=== PATIENT | female | born 1995 | race Caucasian/White ===

== ENCOUNTER → 2020-09-27 13:52 | Outpatient (BNVA) | payer BC, MEDICAID, SELFPAY | PROVIDERS: Visit Provider Advanced Practice Midwife | DX: Z76.89 Persons encountering health services in other specified circumstances (principal) ==

== ENCOUNTER 2020-10-03 20:09 | Emergency (ER) | payer OTHER, SELFPAY ==
[2020-10-03 20:15] VITALS: BP 128/81; PULSE 75; RESP 14; TEMP 36.8; O2SAT 99
[2020-10-03 20:55] VITALS: BP 128/88; PULSE 79; RESP 16; TEMP 36.5; O2SAT 99; BMI 26.6
--- NOTE | 2020-10-03 21:12 | ED_ITS ---
HPI - Nausea/Vomiting/Diarrhea General Chief complaint: Nausea/Vomiting/Diarrhea Stated complaint: SOB Time Seen by Provider: 10/03/20 21:12 Source: patient Mode of arrival: ambulatory Limitations: no limitations History of Present Illness HPI Narrative: This is a 25-year-old female who presents after having a NuvaRing placed at approximately noon today in attempt to control heavy menstrual bleeding. She states that at approximately 4:00 p.m. she began experiencing nausea and a few episodes of nonbilious /nonbloody vomiting in conjunction with a few episodes of nonbloody diarrhea. She denies that this could possibly be contaminated food as she shared a meal and review others who are not having the same symptoms. In addition, patient complaints of discomfort behind her left knee. She denies any personal or family history clotting, denies smoking tobacco, but is on control for control of heavy menstrual bleeding. She denies any associated fevers, chills, but states that she did experience some dizziness after her nausea and vomiting episodes. Related Data Previous Rx's Medication Instructions Recorded etonogestrel 0.12 mg-ethinyl 1 vag ring VAGINAL Q4W 21 Days #1 09/27/20 estradiol 0.015 mg/24 hr vaginal ea ring Allergies Allergy/AdvReac Type Severity Reaction Status Date / Time No Known Allergies Allergy Verified 10/03/20 20:53 Review of Systems Review of Systems: Pertinent positives and negatives as stated in HPI 10 point review of systems is otherwise negative. [facility] Past Medical History Source: nursing notes reviewed Medical History History of asthma Surgical History Hx of shoulder surgery Family History Family History Maternal Grandmother History of breast cancer Ovarian cancer Father Diabetes mellitus Hypertension Mother Diabetes mellitus Social History Social History Alcohol intake: current Alcohol intake frequency: holidays/special occasions only Smoking Status: Never smoker Use of substances other than those prescribed or required for medical reasons: Yes Substance Use Type: Marijuana Advance Directives: No Advance Directives Information Provided: No Sexual orientation: Straight/Heterosexual Gender identity: female Physical Exam Vital Signs: Vital Signs: Last Vital Signs Temp 97.7 F 10/03/20 20:55 Pulse 79 10/03/20 20:55 Resp 16 10/03/20 20:55 BP 128/88 10/03/20 20:55 Pulse Ox 99 10/03/20 20:55 Body Mass Index 26.6 VITAL SIGNS: Reviewed. GENERAL: Well developed, well nourished, in no acute distress. HEAD: Normocephalic/atraumatic, EYES: PERRLA, EOMI intact without pain, no nystagmus/pallor/icterus noted EARS: Ext canals without abnormality, TMs non-bulging and non-erythematous NOSE: Nares patent bilateral OROPHARYNX: no oral lesions noted, posterior pharynx clear and non-erythematous without noted tonsillar enlargement/erythema/exudates NECK: Supple, no adenopathy LUNGS: Normal breath sounds. No adventitious sounds or accessory muscle use. SpO2<99> CARDIOVASCULAR: Regular rate and rhythm without noted murmurs, no JVD or lower extremity edema. ABDOMEN: Soft, non-tender, non-distended with bowel sounds. No rigidity. No guarding. No palpable masses or hernias noted MUSCULOSKELETAL: No tenderness, deformities, or effusions noted on gross inspection. EXTREMITIES: No cyanosis, clubbing or edema. SKIN: Inspection of the skin reveals no rashes, ulcerations, jaundice, pallor, or petechiae. NEUROLOGIC: Alert and oriented x 4. Strength and sensation to light touch were grossly intact x 4. Course Course Course Narrative: This is a 25-year-old female with history and clinical presentation most consistent with transient viral gastroenteritis, but Dr Valera directed patient to the emergency department for further evaluation. On review of all investigation urinalysis was negative for evidence of acute infection however there was trace blood noted raising suspicion for possible renal colic given symptoms of nausea and vomiting. However, of note patient's nausea and vomiting has improved and she was able to tolerate water with the Zofran and was not observed to have any further episodes of diarrhea. On review of CT scan there is no evidence of renal colic or acute intra-abdominal pa thology at this time. All results and findings were discussed with patient at bedside and she was encouraged to follow up with her physician 1st thing in the morning for further management. She will be discharged with a prescription for Zofran instructed to use it scheduled for 24 hours. MDM - Nausea/Vomiting/Diarrhea Lab Data Labs: Lab Results 10/03/20 Range/Units 21:54 Urine Color YELLOW Urine Appearance CLEAR Urine pH 6.5 (5.0-8.0) Ur Specific [place] 1.015 (1.005-1.025) Urine Protein NEG (NEG-TRACE) MG/DL Urine Glucose (UA) NEG (NEG) MG/DL Urine Ketones NEG (NEG) MG/DL Urine Blood 1+ H (NEG) Urine Nitrite NEG (NEG) Ur Leukocyte Esterase NEG (NEG) Urine RBC 0-2 (0) /HPF Urine WBC 0 (0-4) /HPF Ur Squamous Epith Cells TRACE /LPF Urine Bacteria TRACE /LPF Urine Test NEGATIVE (NEGATIVE) Discharge Plan Discharge Clinical Impression: Gastroenteritis Patient Disposition: Home, Self-Care Instructions: Gastroenteritis (ED) Additional Instructions: 1. Please increase fluid hydration specifically with water. 2. You have been provided with a prescription for Zofran it is recommended that you take it scheduled for 24 hours to facilitate your rehydration process. 3. Please contact your provider 1st thing in the morning for further management and evaluation of your symptoms. The patient and/or family acknowledge understanding of results (as applicable), diagnosis, treatment plan, need for follow up, and symptoms that should prompt a return to the emergency room. Prescriptions: No Action etonogestrel-ethinyl estradiol [NuvaRing] 0.12-0.015 mg/24 hr ring 1 vag ring vaginal Q4W 21 Days Qty: 1 RF: 5 Referrals: Jerry Turner, [employer] [Primary Care Provider] - 2 days ( For further management)
[2020-10-03 22:05] LABS: Glucose Urine UA NEG (NEG); Leukocyte Esterase Urine NEG (NEG); Nitrite Urine NEG (NEG); PH 6.5 (5.0-8.0); Specific Gravity - Urine 1.015 (1.005-1.025); Urine Blood 1+ (NEG); Urine Ketones NEG (NEG); Urine Protein NEG (NEG-TRACE)
[2020-10-03 22:06] LABS: Appearance Urine CLEAR; Color Urine YELLOW
[2020-10-03 22:08] LABS: Urine Pregnancy NEGATIVE (NEGATIVE)
[2020-10-03 22:09] LABS: UPreg QC Valid YES
[2020-10-03 22:23] LABS: Bacteria Urine TRACE /LPF; RBC Urine 0-2 /HPF (0); Squamous Epithelial Cell Urine TRACE /LPF; WBC Urine 0 /HPF (0-4)
--- NOTE | 2020-10-03 22:51 | CT_ITS ---
EXAMINATION: CT ABDOMEN AND PELVIS WITHOUT CONTRAST CLINICAL INFORMATION: Flank pain. COMPARISON: 12/10/2017. TECHNIQUE: Contiguous axial thin section helical images of the abdomen and pelvis were performed without oral or IV contrast. The data set was reformatted in the coronal and sagittal planes and reviewed on an independent workstation. DLP: 531 mGy-cm. FINDINGS: The visualized lung bases are clear. The visualized portions of the heart are unremarkable. The liver is of normal size and attenuation without focal lesions nor intrahepatic biliary ductal dilation. A normal gallbladder is identified. There is no wall thickening or discernible pericholecystic fluid. The spleen, pancreas, adrenal glands are unremarkable. Both kidneys are of normal size and attenuation without hydronephrosis or nephrolithiasis. There is no abdominal free fluid. There is neither mesenteric nor retroperitoneal lymphadenopathy. Normal unopacified loops of small and large bowel are identified. A normal appendix is identified. There is no pelvic free fluid. The urinary bladder is unremarkable. There is neither pelvic nor inguinal lymphadenopathy. Bone windows: Neither sclerotic nor lytic bone lesions are identified. CT/CT abdomen pelvis wo con IMPRESSION: No evidence for acute abdominal or pelvic inflammatory or infectious processes. Neither hydronephrosis nor nephrolithiasis. Automated exposure control (Care Dose) Adjustment of the mA and/or kv according to patient size (this includes techniques or standardized protocols for targeted exams where dose is matched to indication / reason for exam; i.e. extremities or head).
[2020-10-04] VITALS: BP 128/72; PULSE 72; RESP 16; TEMP 36.8; O2SAT 99
== END 2020-10-04 00:55 | disposition home or self-care (01) ==
PROVIDERS: Emergency Provider Student in an Organized Health Care Education/Training Program; PCP Nurse Practitioner Family
DX: K52.9 Noninfective gastroenteritis and colitis, unspecified (principal); R11.2 Nausea with vomiting, unspecified; F11.90 Opioid use, unspecified, uncomplicated
CPT/HCPCS: 74176; 81001; 81003; 81025; 99284

== ENCOUNTER 2020-12-13 14:19 | Outpatient (REF) | payer OTHER, SELFPAY ==
--- NOTE | 2020-12-13 14:21 | US_ITS ---
EXAMINATION: US VENOUS ULTRASOUND WITH DOPPLER LOWER EXTREMITY, LEFT CLINICAL INFORMATION: Left knee and leg pain COMPARISON: None TECHNIQUE: Ultrasound of the deep veins is performed from the hip to the calf with compression sonography and color and pulse Doppler assessment. Spectral analysis with color-flow imaging is performed. FINDINGS: There is normal venous compression and respiratory variation and augmented flow. The visualized common femoral vein, superficial femoral vein, profunda femoral vein, popliteal vein, and the trifurcation region shows no evidence of deep venous thrombosis. There is no significant popliteal fossa cyst. US/US venous duplex LE LT IMPRESSION: No DVT demonstrated in the left lower extremity. There is normal Mayes's cyst seen.
== END 2020-12-13 14:20 | disposition home or self-care (01) ==
LOC: HO.HMGCX 14:19
PROVIDERS: PCP Nurse Practitioner Family; Visit Provider Nurse Practitioner Family
DX: M25.562 Pain in left knee (principal)
CPT/HCPCS: 93971

== ENCOUNTER 2021-01-03 12:42 | Outpatient (REF) | payer OTHER, SELFPAY ==
--- NOTE | ~2021-01-03 | XR_ITS ---
EXAMINATION: LEFT HIP AND KNEE X-RAY CLINICAL INFORMATION: Pain COMPARISON: None TECHNIQUE: 2 views of the left hip and 4 views of the left knee FINDINGS: Left hip: Bone alignment is normal. No fracture or dislocation is seen. The joint space is normal. Soft tissues are normal. Left knee: Bone alignment is normal. No fracture or dislocation is seen. Joint spaces are normal. There is no joint effusion. XR/XR knee LT 4V IMPRESSION: Unremarkable exam.
--- NOTE | ~2021-01-03 | XR_ITS ---
EXAMINATION: LEFT HIP AND KNEE X-RAY CLINICAL INFORMATION: Pain COMPARISON: None TECHNIQUE: 2 views of the left hip and 4 views of the left knee FINDINGS: Left hip: Bone alignment is normal. No fracture or dislocation is seen. The joint space is normal. Soft tissues are normal. Left knee: Bone alignment is normal. No fracture or dislocation is seen. Joint spaces are normal. There is no joint effusion. XR/XR hip LT min 2V IMPRESSION: Unremarkable exam.
== END 2021-01-03 12:43 | disposition home or self-care (01) ==
LOC: HO.HMGCX 12:42
PROVIDERS: PCP Nurse Practitioner Family; Visit Provider Nurse Practitioner Family
DX: M25.562 Pain in left knee (principal); M25.552 Pain in left hip
CPT/HCPCS: 73502; 73564

== ENCOUNTER → 2021-02-28 10:31 | Outpatient (BNVA) | payer OTHER, SELFPAY | PROVIDERS: Visit Provider Advanced Practice Midwife | DX: Z30.9 Encounter for contraceptive management, unspecified (principal) | CPT/HCPCS: 99212 ==

== ENCOUNTER 2021-03-15 | Outpatient (REF) | payer OTHER, SELFPAY | END 2021-03-15 00:01 | disposition home or self-care (01) | LOC: HO.LNP | PROVIDERS: Visit Provider Nurse Practitioner Family | DX: N39.0 Urinary tract infection, site not specified (principal); R31.9 Hematuria, unspecified | CPT/HCPCS: 87086 ==

== ENCOUNTER 2021-03-18 10:37 | Outpatient (REF) | payer OTHER, SELFPAY | END 2021-03-18 10:38 | disposition home or self-care (01) | LOC: HO.LAB 10:37 | PROVIDERS: PCP Nurse Practitioner Family; Visit Provider Advanced Practice Midwife | DX: Z32.01 Encounter for pregnancy test, result positive (principal); N39.0 Urinary tract infection, site not specified | CPT/HCPCS: 36415; 81025; 84702; 99212 ==

== ENCOUNTER 2021-03-21 15:17 | Outpatient (REF) | payer OTHER, SELFPAY ==
--- NOTE | ~2021-03-21 | US_ITS ---
EXAMINATION: US OBSTETRICAL ULTRASOUND CLINICAL INFORMATION: Positive test. Check size and dates. COMPARISON: None. LMP: 11/22/2020. Gestational age by maternal dates is 17 weeks 0 days. Estimated date of delivery by maternal dates is 08/29/2021. TECHNIQUE: Transabdominal first trimester OB ultrasound FINDINGS: There is a single intrauterine gestational sac with visible yolk sac, embryo/fetus, and cardiac activity. There is no significant subchorionic hemorrhage or hematoma. HR: 158 beats per minute. CRL (crown rump length): 1.3 cm (7 weeks 4 days +/- 4 days). GALILEO (estimated date of delivery): 11/03/2021 +/- 4 days. MATERNAL ADNEXA: The right maternal ovary measures 2.2 x 1.4 x 1.6 cm. The left maternal ovary measures 2.9 x 1.9 x 2 cm. There is no significant maternal adnexal mass. No maternal pelvic ascites. US/US OB <= 14 weeks fetus IMPRESSION: 1. Single intrauterine gestation with ultrasound gestational age of 7 weeks 4 days +/- 4 days. 2. Estimated date of delivery is 11/03/2021 +/- 4 days. 3. No maternal adnexal mass or pelvic ascites.
== END 2021-03-21 15:18 | disposition home or self-care (01) ==
LOC: HO.US 15:17
PROVIDERS: Visit Provider Advanced Practice Midwife
DX: Z32.01 Encounter for pregnancy test, result positive (principal); Z36.87 Encounter for antenatal screening for uncertain dates; Z3A.17 17 weeks gestation of pregnancy
CPT/HCPCS: 76801

== ENCOUNTER → 2021-03-22 11:46 | Outpatient (BNVA) | payer OTHER, SELFPAY | PROVIDERS: PCP Nurse Practitioner Family; Visit Provider Obstetrics & Gynecology ==

== ENCOUNTER 2021-04-05 11:16 | Outpatient (REF) | payer OTHER, SELFPAY | END 2021-04-05 11:17 | disposition home or self-care (01) | LOC: HO.LNP 11:16 | PROVIDERS: Visit Provider Hospitalist | DX: Z20.828 Contact with and (suspected) exposure to other viral communicable diseases (principal); B34.9 Viral infection, unspecified; Z64.0 Problems related to unwanted pregnancy | CPT/HCPCS: U0003; U0005 ==

== ENCOUNTER 2021-04-07 10:32 | Day surgery (SDC) | payer OTHER, SELFPAY ==
--- NOTE | 2021-04-06 14:25 | HO.ANESPROP2 ---
Documented by User: Ina Whitman 04/06/21 14:25 HPI - Anesthesia Eval Consult details Narrative: 26yo F for elective D&E Suction Curettage PMFSH Active Problems Active Problems: All Active Problems (Updated 04/04/21 @ 17:03 by Jordy Marcum DO) Viral syndrome (Acute) test positive (Acute) UTI (urinary tract infection) (Acute) Breast lump in lower inner quadrant (Acute) Left hip pain (Acute) Posterior left knee pain (Acute) Past Medical History Medical History Breast lump in lower inner quadrant History of asthma Family History Family History Maternal Grandmother History of breast cancer Ovarian cancer Father Diabetes mellitus Hypertension Mother Diabetes mellitus Surgical History Surgical History Hx of shoulder surgery Social History Social History Alcohol intake: current Alcohol intake frequency: holidays/special occasions only Smoking Status: Current every day smoker Use of substances other than those prescribed or required for medical reasons: Yes Substance Use Type: Marijuana Are you DNR?: No Advance Directives: No Advance Directives Information Provided: Yes Sexual orientation: Straight/Heterosexual Gender identity: female Meds Allergies Allergy/AdvReac Type Severity Reaction Status Date / Time No Known Allergies Allergy Verified 04/07/21 10:58 Home Medications Medication Instructions Recorded Confirmed Last Taken Type norethindrone acetate 1 mg-ethinyl 1 tab PO DAILY 04/04/21 04/04/21 Unknown History estradiol 20 mcg tablet Exam Exam Date and Time: April 06, 2021 142 Assessment and Plan Assessment Anesthesia Assessment: Chart Reviewed Documented by User: Lissa Gilbert 04/07/21 11:24 PMFSH Past Medical History Medical History Breast lump in lower inner quadrant History of asthma Family History Family History Maternal Grandmother History of breast cancer Ovarian cancer Father Diabetes mellitus Hypertension Mother Diabetes mellitus Surgical History Surgical History Hx of shoulder surgery Social History Social History Alcohol intake: current Alcohol intake frequency: holidays/special occasions only Smoking Status: Current every day smoker Use of substances other than those prescribed or required for medical reasons: Yes Substance Use Type: Marijuana Are you DNR?: No Advance Directives: No Advance Directives Information Provided: Yes Sexual orientation: Straight/Heterosexual Gender identity: female Meds Allergies Allergy/AdvReac Type Severity Reaction Status Date / Time No Known Allergies Allergy Verified 04/07/21 10:58 Home Medications Medication Instructions Recorded Confirmed Last Taken Type norethindrone acetate 1 mg-ethinyl 1 tab PO DAILY 04/04/21 04/04/21 Unknown History estradiol 20 mcg tablet Exam Airway Mallampati Class: II TM Dist: >3cm Neck ROM: Full Assessment and Plan Assessment Anesthesia Assessment: Anesthesia Plan Discussed and Chart Reviewed Final Anesthetic Review NPO: Yes ASA Class: II Final Preanesthetic Review: No Changes in Pt Med Stat, Meds/Allgs Chart Reviewed, Consent Obtained/Reviewed and Anes Risks/Benef Reviewed Patient Risk: Low Procedure Risk: Low Assessment/Block/Sedation in SS: Assess/Block/Sedation-SS Anesthetic Plan Anesthetic Plan: MAC: Disposition: Standard PACU
[2021-04-07 11:01] VITALS: BMI 27.4
[2021-04-07 11:20] VITALS: BP 109/69; PULSE 65; RESP 18; TEMP 36.1; O2SAT 97
[2021-04-07] MEDS: Lactated Ringers 1,000 ML 100 ML IVCONT (11:23)
--- NOTE | 2021-04-07 11:25 | MHC.SHP ---
Pre-Procedural Eval Section A The patient is an INPATIENT: No Changes since office visit: No Cold of Flu in the past 2 weeks, No New Medical Problems, No Changes in Medication and No Patient answered all questions The History & Physical has been completed within 30 days and I have reviewed it.: Yes Section B Chief Complaint: Unwanted 10 Weeks Allergies: Allergies Allergy/AdvReac Type Severity Reaction Status Date / Time No Known Allergies Allergy Verified 04/07/21 10:58 Plan I have reviewed the history and physical and performed a pertinent physical examination on my patient. No changes have occurred unless specified.
--- NOTE | 2021-04-07 11:32 | P.OP_ITS ---
Operative Note Operative Note Date of Service: 04/07/21 Narrative: Surgeon: Cristiane Vazquez MD Film Cleaner: None Preoperative Diagnosis: Unwanted SIUP at 10 0/7 weeks GA Postoperative Diagnosis: Unwanted SIUP at 10 0/7 weeks GA Procedure performed: Suction dilation and curettage Anesthesia: IV sedation Findings: 10 week size uterus Specimen: intrauterine contents Complications: none Disposition: PACU Ms. Nichols is a 26 year old with unwanted single intrauterine at 10 0/7wks gestational age today by US. She was counseled regarding options, including continuing the , adoption, and terminating the either with medication or a surgical procedure. After discussion, she elected a surgical . Surgical Risks: The patient was informed of the risks and benefits of the procedure Risks included but were not limited to bleeding, infection, injury to the vulva, vagina, or cervix, and uterine perforation (with possible injury to intrapelvic organs and need for diagnostic laparoscopy or laparotomy). The patient expressed understanding of the risks involved, all questions were answered, and the patient consented to the procedure. The patient was taken to the operating room where a time out was performed to confirm correct patient and correct procedure. The patient was given preoperative antibiotics per ACOG guidelines (200mg doxycycline PO). Adequte IV sedation was established. The patient was then positioned on the operating table in the dorsal lithotomy position with the legs supported in stirrups. All pressure points were padded and a warm blanket was placed to maintain core body temperature. The patient was then prepped and draped in the usual sterile fashion.A straight catheter was inserted into the bladder and the bladder was emptied. A bimanual exam was performed and the uterus was found to be 10 week size, mildly anteverted. A bivalve speculum was inserted into the vagina and the cervix was visualized and grasped using the single tooth tenaculum. 6mL 0.5% bupivicaine was injected at the cervico-vaginal junction at each 4 and 8 o'clock after first aspirating to confirm location not in a blood vessel, for a total of 12mL. The uterus was was then adequately dilated using Werner dilators for the introduction of the 10mm suction curette. The suction curette was advanced to the fundus and then suction was applied and the curette was rotated in a circular fashion as the curette was withdrawn. The suction was relieved at the internal os and the curette was again advanced to the fundus. This was repeated until no products were obtained. The suction curette was withdrawn and a sharp curette was advanced to the fundus. The uterus was curetted in a systematic manner covering all surfaces until a gritty texture was noted throughout. The suction curette was introduced one final time and the uterine cavity was cleared of any remaining products or curettings. The suction curette was then withdrawn and the single tooth tenaculum was removed from the anterior lip of the cervix. Good hemostasis was noted. The bivalve speculum was then removed from the vagina. The POC were examined to confirm calvarium, two uppers, two lowers, spinal cord, and placenta were removed. At completion of the procedure, all needle, sponge, and instrument counts were noted to be correct x2. The patient tolerated the procedure well and was transferred to the recovery room in stable condition.
[2021-04-07 12:31] VITALS: BP 113/68; PULSE 53; RESP 16; TEMP 36.7; O2SAT 100
[2021-04-07 12:51] VITALS: BP 114/58; PULSE 46; RESP 17; O2SAT 100
[2021-04-07] MEDS: ondansetron HCL 4 MG/2 ML VIAL IVPUSH (12:53)
[2021-04-07 13:06] VITALS: BP 115/61; PULSE 78; RESP 17; TEMP 36.7; O2SAT 100
== END 2021-04-07 13:20 | disposition home or self-care (01) ==
PROVIDERS: PCP Nurse Practitioner Family; Visit Provider Obstetrics & Gynecology
PROC: (CPT 59841; principal; 2021-04-07 11:10)
DX: Z64.0 Problems related to unwanted pregnancy (principal); J45.909 Unspecified asthma, uncomplicated; F12.90 Cannabis use, unspecified, uncomplicated
CPT/HCPCS: 59841; 88304; J1885; J2250; J2405; J3010

== ENCOUNTER → 2021-04-25 12:30 | Outpatient (BNVA) | payer OTHER, SELFPAY | PROVIDERS: PCP Nurse Practitioner Family; Visit Provider Obstetrics & Gynecology | DX: Z09 Encounter for follow-up examination after completed treatment for conditions other than malignant neoplasm (principal) | CPT/HCPCS: 99212 ==

== ENCOUNTER 2021-07-07 11:09 | Outpatient (REF) | payer OTHER, SELFPAY ==
[2021-07-07 16:58] LABS: CT PCR NOT DETECTED (Not Detect.); NG PCR NOT DETECTED (Not Detect.)
== END 2021-07-07 11:10 | disposition home or self-care (01) ==
LOC: HO.LAB 11:09
PROVIDERS: PCP Nurse Practitioner Family; Visit Provider Obstetrics & Gynecology
DX: Z01.419 Encounter for gynecological examination (general) (routine) without abnormal findings (principal)
CPT/HCPCS: 87491; 87591; 88142

== ENCOUNTER → 2021-07-20 11:03 | Outpatient (BNVA) | payer OTHER, SELFPAY | PROVIDERS: PCP Nurse Practitioner Family; Visit Provider Obstetrics & Gynecology ==

== ENCOUNTER 2021-08-15 08:34 | Outpatient (REF) | payer OTHER, SELFPAY | END 2021-08-15 08:35 | disposition home or self-care (01) | LOC: HO.LAB 08:34 | PROVIDERS: PCP Nurse Practitioner Family; Visit Provider Obstetrics & Gynecology | DX: R87.612 Low grade squamous intraepithelial lesion on cytologic smear of cervix (LGSIL) (principal); J45.909 Unspecified asthma, uncomplicated | CPT/HCPCS: 57454; 88305; 88342; 88360 ==

== ENCOUNTER 2021-09-16 11:57 | Emergency (ER) | payer OTHER, SELFPAY ==
[2021-09-16 13:54] VITALS: BP 147/99; PULSE 77; RESP 16; TEMP 36.6; O2SAT 100; BMI 26.6
--- NOTE | 2021-09-16 14:28 | ED.NECK ---
HPI - Neck Pain/Injury General Chief Complaint: Neck Pain/Injury Stated Complaint: neck injury Time Seen by Provider: 09/16/21 14:28 History of Present Illness HPI Narrative: Patient complains of pain in the upper back after a weight fell off the weight stand at the gym and hit her in the back, she has no numbness weakness or tingling she has no headache no loss of consciousness no radiation of pain no dizziness no weakness Related Data Previous Rx's Medication Instructions Recorded etonogestrel 0.12 mg-ethinyl 1 vag ring VAGINAL Q4W #3 ea 07/07/21 estradiol 0.015 mg/24 hr vaginal ring (NuvaRing) mupirocin 2 % topical ointment 1 appl TOPICAL TID #22 g 08/25/21 Allergies Allergy/AdvReac Type Severity Reaction Status Date / Time No Known Allergies Allergy Verified 08/25/21 12:06 Review of Systems Review of Systems: Positive for upper back pain Negatives no headache no loss of consciousness not dazed no amnesia no dizziness no confusion no loss of balance no numbness weakness or tingling no radiation of the pain no chest pain no shortness of breath no abdominal pain no changes to bowel or bladder Yes all other systems are reviewed and are negative PMFSH Past Medical History Source: nursing notes reviewed Medical History History of asthma Surgical History Hx of shoulder surgery Family History Family History Maternal Grandmother History of breast cancer Ovarian cancer Father Diabetes mellitus Hypertension Mother Diabetes mellitus Social History Social History Alcohol intake: current Alcohol intake frequency: holidays/special occasions only Patient Tobacco Use Status: Never used Tobacco Substance Use Type: Marijuana Advance Directives: No Patient : No Sexual orientation: Straight/Heterosexual Gender identity: Female Physical Exam Vital Signs: Vital Signs: Last Vital Signs Temp 97.8 F 09/16/21 13:54 Pulse 77 09/16/21 13:54 Resp 16 09/16/21 13:54 BP 147/99 H 09/16/21 13:54 Pulse Ox 100 09/16/21 13:54 Body Mass Index 26.6 General appearance was no acute distress Head is normocephalic atraumatic The pupils equal round reactive to light extraocular motions are intact The ears there is no hemotympanum and eardrums were normal and canals were normal The neck was supple and nontender The upper back between the upper vertebrae and the right side scapula there is an obvious contusion with some tenderness but there is no bony tenderness, there is full range of motion in the neck and the back The chest is clear to auscultation bilateral Abdomen is soft nontender The back exam is stated above there is no bony tenderness and there is normal range of motion The extremities full range of motion x4 Neuro motor is 5/5 x4 including 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 strength, gait and balance are normal speech and interaction and comprehension are normal, cranial nerves 2-12 intact as tested, cerebellar exam is normal Course Course Course Narrative: Patient's exam is consistent with a contusion to the back it with expected full resolution in a few days she had no head trauma no loss of consciousness and the she has no evidence of any neck injury and is discharged without neurologic deficit and well-appearing to follow with primary care Discharge Plan Discharge Clinical Impression: Contusion Patient Disposition: Home, Self-Care Additional Instructions: Your exam did not show any sign of any serious injury to your neck back or head There is a contusion on the upper back which most likely is the cause of the discomfort and this should get better within several days Return to the ER any time any worse condition or any concerns If mild pain continues follow with her doctor for further evaluation Prescriptions: No Action mupirocin 2 % ointment 1 appl topical TID Qty: 22 RF: 0 etonogestrel-ethinyl estradiol [NuvaRing] 0.12-0.015 mg/24 hr ring 1 vag ring vaginal Q4W Qty: 3 RF: 11 Interventions: ED Discharge Assessment Last Done: 09/16/21 14:43 Discharge Date/Time: 09/16/21 14:46
== END 2021-09-16 14:46 | disposition home or self-care (01) ==
PROVIDERS: Emergency Provider Emergency Medicine; PCP Nurse Practitioner Family
DX: S20.229A Contusion of unspecified back wall of thorax, initial encounter (principal); W20.8XXA Other cause of strike by thrown, projected or falling object, initial encounter; Y93.9 Activity, unspecified; Y92.9 Unspecified place or not applicable; Y99.9 Unspecified external cause status
CPT/HCPCS: 99283

== ENCOUNTER → 2021-09-26 14:29 | Outpatient (BNVA) | payer OTHER, SELFPAY | PROVIDERS: PCP Nurse Practitioner Family; Visit Provider Obstetrics & Gynecology | DX: N87.1 Moderate cervical dysplasia (principal) | CPT/HCPCS: 99212 ==

== ENCOUNTER 2021-12-15 10:53 | Outpatient (REF) | payer OTHER, SELFPAY ==
[2021-12-15 13:17] LABS: HCG Quantitative 3968 mIU/mL
== END 2021-12-15 10:54 | disposition home or self-care (01) ==
LOC: HO.LAB 10:53
PROVIDERS: PCP Nurse Practitioner Family; Visit Provider Advanced Practice Midwife
DX: N92.6 Irregular menstruation, unspecified (principal)
CPT/HCPCS: 36415; 81025; 84702; 99212

== ENCOUNTER 2021-12-17 08:53 | Outpatient (REF) | payer OTHER, SELFPAY ==
[2021-12-17 09:57] LABS: HCG Quantitative 6856 mIU/mL
== END 2021-12-17 08:54 | disposition home or self-care (01) ==
LOC: HO.LAB 08:53
PROVIDERS: PCP Nurse Practitioner Family; Visit Provider Advanced Practice Midwife
DX: N92.6 Irregular menstruation, unspecified (principal)
CPT/HCPCS: 36415; 84702

== ENCOUNTER 2021-12-23 08:27 | Outpatient (REF) | payer OTHER, SELFPAY ==
--- NOTE | ~2021-12-23 | US_ITS ---
EXAMINATION: OBSTETRICAL ULTRASOUND, FIRST TRIMESTER HISTORY: 26-year-old with irregular menses Uncertain dates LMP: 08/22/2021 COMPARISON: None TECHNIQUE: Real time transabdominal imaging with color and M-mode Doppler. FINDINGS: A single, live IUP CRL of 6.0 mm c/w 6.3wks is noted. Heart Rate: 118 beats per minute. Both maternal ovaries are seen and appear normal. GESTATIONAL AGE: 1. GA from LMP: 17.4 wks 2. GA from AUA: 6.3 wks ESTIMATED DATE OF DELIVERY: 1. G[place]ILEO from LMP: 05/29/2022 2. G[place] from AUA: 08/15/2022 US/US OB <= 14 weeks fetus IMPRESSION: A single live IUP CRL corresponds to 6.3 weeks of gestation. The best GALILEO is 08/15/2022. Normal ovaries Thank you very much for this referral. This note was generated with a voice recognition program. Please excuse any errors which may have been overlooked during my review of this note. Sometimes these errors may affect the content or meaning of a given sentence.
== END 2021-12-23 08:28 | disposition home or self-care (01) ==
LOC: HO.US 08:27
PROVIDERS: Visit Provider Advanced Practice Midwife
DX: Z34.91 Encounter for supervision of normal pregnancy, unspecified, first trimester (principal); Z3A.01 Less than 8 weeks gestation of pregnancy
CPT/HCPCS: 76801

== ENCOUNTER 2022-01-05 12:50 | Emergency (ER) | payer OTHER, SELFPAY ==
[2022-01-05 13:19] VITALS: BP 109/79; PULSE 78; RESP 18; TEMP 36.6; O2SAT 99; BMI 27.4
[2022-01-05] MEDS: Ondansetron ODT 4 MG TAB.RAPDIS TRANSLINGU (13:25)
[2022-01-05 14:16] LABS: MANUAL DIFF FLAG NO
[2022-01-05 14:19] LABS: Basophils Percent Auto 0.2 % (0-2); Eosinophils Percent Auto 0.2 % (0-4); Hematocrit 42.2 % (37.0-47.0); Hemoglobin 14.2 g/dl (12.0-16.0); Imm Gran Abs Auto 0.02 X10*3/uL (0.00-0.03); Imm Gran Pct Auto 0.2 % (0.0-0.4); Lymphocytes Absolute Auto 1.6 X10*3/uL (1.2-4.9); Lymphocytes Percent Auto 18.8 % (20-40); Mean Corpuscular HGB Conc 33.6 g/dl (31.0-35.0); Mean Corpuscular Hemoglobin 30.2 pg (27.0-33.0); Mean Corpuscular Volume 89.8 fL (80.0-98.0); Mean Platelet Volume 10.6 fL (9.4-12.3); Monocytes Absolute Auto 0.5 X10*3/uL (0.1-1.2); Monocytes Percent Auto 6.2 % (2-11); Neutrophils Absolute Auto 6.3 x10*3/uL (2.0-8.3); Neutrophils Percent Auto 74.4 % (45-73); Platelet Count 243 X10*3/uL (160-400); Red Cell Distribution Width 11.9 % (11.0-16.0); White Blood Count 8.5 X10*3/uL (4.8-10.8)
[2022-01-05 14:29] LABS: Appearance Urine CLEAR; Color Urine YELLOW; Glucose Urine UA NEG (NEG); Leukocyte Esterase Urine NEG (NEG); Nitrite Urine NEG (NEG); UACC Culture Trigger NO; Urine Blood TRACE (NEG); Urine Ketones NEG (NEG); Urine Protein NEG (NEG-TRACE)
[2022-01-05 14:30] LABS: Anion Gap 10 (12-20); Blood Urea Nitrogen 7 mg/dL (9-16); Calcium 9.5 mg/dL (8.4-10.2); Carbon Dioxide 25 mmol/L (22-29); Chloride 104 mmol/L (96-108); Creatinine Clr Calc Pharmacy 139.4; Estimated Glomerular Filt Rate > 60; Glucose Random 91 mg/dL (60-115); Potassium 4.2 mmol/L (3.3-5.1); Sodium 135 mmol/L (135-145)
[2022-01-05 14:42] LABS: RBC Urine 0-2 /HPF (0); Squamous Epithelial Cell Urine TRACE /LPF; WBC Urine 0 /HPF (0-4)
== END 2022-01-05 21:16 | disposition left against medical advice (07) ==
PROVIDERS: Emergency Provider Emergency Medicine; PCP Nurse Practitioner Family
DX: R11.2 Nausea with vomiting, unspecified (principal)
CPT/HCPCS: 36415; 80048; 81001; 85025; 99283

== ENCOUNTER 2023-05-08 10:35 | Outpatient (REF) | payer OTHER, SELFPAY ==
[2023-05-08 11:23] LABS: MANUAL DIFF FLAG NO
[2023-05-08 11:38] LABS: Basophils Percent Auto 0.5 % (0-2); Eosinophils Absolute Auto 0.1 X10*3/uL (0.0-0.4); Eosinophils Percent Auto 1.1 % (0-4); Hematocrit 41.4 % (37.0-47.0); Hemoglobin 13.2 g/dl (12.0-16.0); Imm Gran Abs Auto 0.01 X10*3/uL (0.00-0.03); Imm Gran Pct Auto 0.2 % (0.0-0.4); Lymphocytes Absolute Auto 1.8 X10*3/uL (1.2-4.9); Lymphocytes Percent Auto 27.4 % (20-40); Mean Corpuscular HGB Conc 31.9 g/dl (31.0-35.0); Mean Corpuscular Hemoglobin 28.7 pg (27.0-33.0); Mean Platelet Volume 10.2 fL (9.4-12.3); Monocytes Absolute Auto 0.4 X10*3/uL (0.1-1.2); Monocytes Percent Auto 6.8 % (2-11); Neutrophils Absolute Auto 4.2 x10*3/uL (2.0-8.3); Platelet Count 282 X10*3/uL (160-400); Red Cell Distribution Width 12.6 % (11.0-16.0); White Blood Count 6.5 X10*3/uL (4.8-10.8)
[2023-05-08 12:41] LABS: Alanine Aminotransferase 23 U/L (0-31); Albumin Level 4.1 g/dL (3.5-5.0); Alkaline Phosphatase 91 U/L (39-117); Anion Gap 8 (12-20); Aspartate Amino Transferase 20 U/L (5-31); Bilirubin Total 0.2 mg/dL (0.0-1.0); Blood Urea Nitrogen 11 mg/dL (9-16); Calcium 9.5 mg/dL (8.4-10.2); Carbon Dioxide 27 mmol/L (22-29); Chloride 107 mmol/L (96-108); Cholesterol 160 mg/dL; Estimated Glomerular Filt Rate > 60; Glucose Fasting 88 mg/dL (60-99); HDL Cholesterol 60 mg/dL; LDL Cholesterol Calculated 92 mg/dl; Potassium 4.2 mmol/L (3.3-5.1); Sodium 138 mmol/L (135-145); Total Protein 7.2 g/dL (6.5-8.0); Triglycerides 40 mg/dL
[2023-05-08 12:42] LABS: TSH reflex Free T4 1.33 uIU/mL (0.32-4.0)
[2023-05-08 15:27] LABS: Appearance Urine Clear; Color Urine Yellow; Glucose Urine UA Negative (Negative); Leukocyte Esterase Urine Negative (Negative); Nitrite Urine Negative (Negative); Urine Blood Negative (Negative); Urine Ketones Negative (Negative); Urine Protein Negative (Neg-Trace)
== END 2023-05-08 10:36 | disposition home or self-care (01) ==
LOC: HO.HMGCLDS 10:35
PROVIDERS: PCP Nurse Practitioner Family; Visit Provider Nurse Practitioner Family
DX: Z00.00 Encounter for general adult medical examination without abnormal findings (principal)
CPT/HCPCS: 36415; 80053; 80061; 81003; 84443; 85025

== ENCOUNTER 2023-08-07 20:39 | Emergency (ER) | payer OTHER, SELFPAY ==
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
[2023-08-07 20:48] VITALS: BP 111/72; PULSE 72; RESP 18; TEMP 36.7; O2SAT 98; BMI 32.3
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
[2023-08-07 21:20] LABS: Appearance Urine Clear; Color Urine Yellow; Glucose Urine UA Negative (Negative); Leukocyte Esterase Urine Trace (Negative); Nitrite Urine Negative (Negative); PH 5.5 (5.0-9.0); Specific Gravity - Urine 1.025 (1.005-1.025); UMIC TRIGGER UACC YES; UPreg QC Valid YES; Urine Blood Negative (Negative); Urine Ketones Negative (Negative); Urine Pregnancy WEAKLY POSITIVE (NEGATIVE); Urine Protein Negative (Neg-Trace)
[2023-08-07 21:28] LABS: Bacteria Urine 1+ (None Seen); Hyaline Casts Urine 0-2 /LPF (0-2); RBC Urine 0-2 /HPF (0-2); UACC Culture Trigger YES
[2023-08-07] MEDS: Acetaminophen 325 MG TABLET 975 MG PO (22:51)
[2023-08-07] MEDS: Lidocaine 4 % Patch ADH..PATCH 1 PATCH TRANSDERMA (22:53)
== END 2023-08-07 23:11 | disposition home or self-care (01) ==
PROVIDERS: Physician Assistant Medical; Emergency Provider Student in an Organized Health Care Education/Training Program; PCP Nurse Practitioner Family
DX: Z04.1 Encounter for examination and observation following transport accident (principal); M79.18 Myalgia, other site; Z33.1 Pregnant state, incidental
CPT/HCPCS: 70450; 72125; 81001; 81025; 87086; 99283; 99284

== ENCOUNTER 2023-08-13 09:18 | Outpatient (REF) | payer OTHER, SELFPAY ==
[2023-08-13 13:20] LABS: HCG Quantitative 3 mIU/mL
== END 2023-08-13 09:19 | disposition home or self-care (01) ==
LOC: HO.HMGCLDS 09:18
PROVIDERS: PCP Nurse Practitioner Family; Visit Provider Obstetrics & Gynecology
DX: N92.6 Irregular menstruation, unspecified (principal); Z32.00 Encounter for pregnancy test, result unknown
CPT/HCPCS: 36415; 84702

== ENCOUNTER 2023-08-24 12:08 | Emergency (ER) | payer OTHER, SELFPAY ==
[2023-08-24 12:45] VITALS: BP 154/95; PULSE 80; RESP 16; TEMP 36.4; O2SAT 99; BMI 32.3
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
--- NOTE | 2023-08-24 14:29 | PC.NURSE ---
reassessed pain level - pt states that medication administration did not provide any relief.
== END 2023-08-24 14:48 | disposition home or self-care (01) ==
PROVIDERS: Emergency Provider Emergency Medicine; PCP Nurse Practitioner Family
DX: R51.9 Headache, unspecified (principal); S16.1XXA Strain of muscle, fascia and tendon at neck level, initial encounter; V43.52XA Car driver injured in collision with other type car in traffic accident, initial encounter; Y93.89 Activity, other specified; Y92.410 Unspecified street and highway as the place of occurrence of the external cause; Y99.9 Unspecified external cause status
CPT/HCPCS: 99283

== ENCOUNTER 2024-01-03 08:05 | Outpatient (AMB) | payer OTHER, SELFPAY ==
[2024-01-03 08:13] VITALS: BP 130/80; PULSE 86; TEMP 36.7; O2SAT 98; BMI 33.9
--- NOTE | 2024-01-03 08:13 | AM.OFFWIN_ITS ---
Intake Vital Signs 01/03/24 08:13 Height 5 ft 6 in Weight 210 lb BMI 33.9 BP 130/80 Blood Pressure Location Lt brachial Position Sitting Pulse 86 Pulse Source Pulse Oximeter Temp 98.0 F Temp Source Oral Pulse Oximetry (%) 98 Intake Visit Reasons: EP sore throat ears ringing [phone] Intake Note: pt is here for c.o sore throat, ears ringing pt states its been going on 2 days Patient Tobacco Use Status: Never used Tobacco Allergies No Known Allergies Allergy (Verified 01/03/24 08:13) Do you need a note to return to daycare/school/sports/work: Yes HPI HPI Comments History of Present Illness Details This is a 28-year-old female with no stated past medical history presenting for evaluation of a sore throat that she has had for the past 3 days. Patient reports mild discomfort in her left ear and ringing in both ears. Patient has not taken any medication for treatment of her symptoms. She denies having any fevers, the swallowing, cough or shortness of breath. Additionally, the patient denies having any known sick contacts. [facility] Medical History Lymphadenopathy Missed menses History of asthma Surgical History Hx of shoulder surgery Family History Maternal Grandmother History of breast cancer Ovarian cancer Father Diabetes mellitus Hypertension Mother Diabetes mellitus Substance use disorder Mental health disorder Maternal Uncle Substance use disorder Mental health disorder Social History Housing: House Alcohol intake: current Alcohol intake frequency: holidays/special occasions only Patient Tobacco Use Status: Never used Tobacco e-Cigarette/Vaping Use: Never Used Second Hand Smoke Exposure: Yes Substance Use Type: Marijuana service: No Current occupational status: employed Current occupation: [employer] Current occupational exposures/hazards: No Sexual orientation: Straight/Heterosexual Gender identity: Female Cognitive needs: No Hearing needs: No Vision needs: No Female Reproductive History Menstrual Age of Menarche: 11 Review of Systems Const All systems reviewed & are unremarkable except as noted in HPI and below Denies fatigue, Denies fever(s) and Denies weakness Eyes Reports no additional complaints ENT Reports as per HPI, Reports otalgia (left) and Reports sore throat Card Reports no additional complaints GI Reports no additional complaints Neuro Reports no additional complaints and Denies weakness Psych Reports no additional complaints Endo Denies fatigue Aller/Immun Reports no additional complaints Physical Exam Patient is afebrile. Const General: cooperative, healthy appearing, comfortable, no acute distress and alert Nutritional Appearance: average body habitus Orientation/consciousness: patient oriented x3 Limitations: no limitations HEENT Head: Yes normal to inspection, Yes No palpable skull fracture present and Yes normocephalic Ears: hearing grossly normal bilaterally, external ears normal, TM's normal bilaterally and EAC's normal General nose exam: Normal external nose present Face and sinus: Yes normal facial exam Mouth: Normal oral and palatal mucosa present and moist mucous membranes Teeth and gingiva: dentition normal Throat: Yes postnasal drainage Eyes Eyelids: Yes eyelids normal Conjunctivae: conjunctivae normal Sclerae: sclerae normal Corneas: corneas normal Pupils: Equal, round and reactive pupils present EOM: EOMs intact bilaterally Neck Lymphatic: no lymphadenopathy noted Resp Effort & Inspection: normal respiratory effort, no cough and no respiratory distress Auscultation: clear to auscultation bilaterally Cardio Rate: regular rate Rhythm: regular rhythm Skin General skin exam: no rashes or lesions noted Neuro General: patient oriented x3 Cranial nerves: Yes Equal, round and reactive pupils present Psych Appearance: grossly normal Mental Status: mental status grossly normal Insight: Good insight present (Psych) Judgement: Good judgement present (Psych) Results Reviewed Results Reviewed: Rapid strep negative. Assessment & Plan Assessment & Plan (1) Acute pharyngitis: Comment: Rapid strep test is negative. Code(s): J02.9 - Acute pharyngitis, unspecified Plan: Ibuprofen 400 mg every 4-6 hours as needed for discomfort, increase clear fluids daily. Coding Level of Care Code Est Pt Level 3 (99821) Diagnoses Acute pharyngitis J02.9 Time Spent (min) 20
== END 2024-01-03 08:36 | disposition home or self-care (01) ==
PROVIDERS: PCP Nurse Practitioner Family; Visit Provider Physician Assistant
DX: J02.9 Acute pharyngitis, unspecified (principal)
CPT/HCPCS: 87880; 99213

== ENCOUNTER 2024-02-13 10:08 | Outpatient (AMB) | payer OTHER, SELFPAY ==
[2024-02-13 10:51] VITALS: BP 108/66; PULSE 81; TEMP 36.9; O2SAT 99; BMI 33.3
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
== END 2024-02-13 11:32 | disposition home or self-care (01) ==
PROVIDERS: PCP Nurse Practitioner Family; Visit Provider Physician Assistant Medical
DX: G43.909 Migraine, unspecified, not intractable, without status migrainosus (principal); Z32.02 Encounter for pregnancy test, result negative
CPT/HCPCS: 81025; 96372; 99213; J1885

== ENCOUNTER 2024-04-17 11:34 | Outpatient (AMB) | payer OTHER, SELFPAY ==
[2024-04-17 12:20] VITALS: BP 120/80; PULSE 73; TEMP 36.6; O2SAT 98; BMI 33.2
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
== END 2024-04-17 12:46 | disposition home or self-care (01) ==
PROVIDERS: PCP Nurse Practitioner Family; Visit Provider Physician Assistant
DX: R51.9 Headache, unspecified (principal)
CPT/HCPCS: 99213

== ENCOUNTER 2025-04-05 08:03 | Emergency (ER) | payer OTHER, SELFPAY ==
--- NOTE | ~2025-04-05 | US_ITS ---
CLINICAL HISTORY: LMP 3 8 - LLQ pain and spotting x3 days US OB 1st trimester transabdominal and transvaginal for improved visualization. Comparison: None Findings: No gestational sac, yolk sac or pole identified. There is thickening of the endometrium measuring up to 12 mm. The right ovary measures 2.7 x 2.0 x 2.3 cm. The left ovary measures 3.1 x 2.2 times 2.5 cm. 11 mm probable cyst noted. Normal color Doppler. Impression: There is no intrauterine gestation identified. The endometrium is mildly thickened at 12 mm. The ovaries appear normal. This document has been electronically signed by: Gianfranco Claros MD on 04/05/2025 12:52:34
[2025-04-05 08:05] VITALS: BP 132/89; PULSE 105; RESP 18; TEMP 35.6; O2SAT 97; BMI 31.7
[2025-04-05 08:20] LABS: MANUAL DIFF FLAG NO
[2025-04-05 08:21] LABS: Basophils Percent Auto 0.5 % (0-2); Eosinophils Absolute Auto 0.1 X10*3/uL (0.0-0.4); Eosinophils Percent Auto 0.7 % (0-4); Hematocrit 39.5 % (37.0-47.0); Hemoglobin 13.3 g/dl (12.0-16.0); Imm Gran Abs Auto 0.01 X10*3/uL (0.00-0.03); Imm Gran Pct Auto 0.1 % (0.0-0.4); Lymphocytes Absolute Auto 1.7 X10*3/uL (1.2-4.9); Lymphocytes Percent Auto 22.1 % (20-40); Mean Corpuscular HGB Conc 33.7 g/dl (31.0-35.0); Mean Corpuscular Hemoglobin 29.3 pg (27.0-33.0); Mean Platelet Volume 10.1 fL (9.4-12.3); Monocytes Absolute Auto 0.5 X10*3/uL (0.1-1.2); Monocytes Percent Auto 6.9 % (2-11); Neutrophils Absolute Auto 5.3 x10*3/uL (2.0-8.3); Neutrophils Percent Auto 69.7 % (45-73); Platelet Count 267 X10*3/uL (160-400); Red Blood Count 4.54 X10*6/uL (4.20-5.50); Red Cell Distribution Width 12.4 % (11.0-16.0); White Blood Count 7.7 X10*3/uL (4.8-10.8)
--- NOTE | 2025-04-05 08:37 | ED_ITS ---
HPI - Female Genitourinary General Chief complaint: Abdominal Pain Stated complaint: abd pain, 5 weeks Time Seen by Provider: 04/05/25 08:18 Source: patient Mode of arrival: ambulatory Limitations: no limitations History of Present Illness ED Provider: Cristiane Marie NP HPI Narrative: Patient is a (4 prior miscarriages with last being in November of 2024 early spontaneous miscarriage without medical intervention, and 1 ) was reported LMP of 01/24/2025 was not yet been seen by an OB who presents emergency department for evaluation. Patient states 3 days ago she began experiencing left lower quadrant abdominal pain that is mild and constant in nature with severe intensity intermittently that feels like when my period Cramps are the worst , She reports over the past 3 days she has been having vaginal spotting described as primarily small episodes of dark red blood but yesterday did have a single episode of bright red blood, has not saturated through any pads. denies fevers, chills, nausea, vomiting, upper abdominal pain, back pain, dysuria, urinary frequency/ urgency / hesitancy, abnormal vaginal discharge, concern for sexually transmitted infections. Related Data Home Medications ?Medication ?Instructions ?Recorded ?Confirmed etonogestrel 68 mg subdermal subdermal 01/03/24 implant (Nexplanon) Previous Rx's ?Medication ?Instructions ?Recorded butalbital 50 mg-acetaminophen 300 1 cap PO .q6 PRN pain #5 caps 04/17/24 mg-caffeine 40 mg-codeine 30 mg cap (Fioricet with Codeine) Allergies Allergy/AdvReac Type Severity Reaction Status Date / Time No Known Allergies Allergy Verified 04/05/25 08:07 Review of Systems 2 Review of Systems: Yes all other systems are reviewed and are negative PMFSH Past Medical History Attestation statement: The following information was validated with the patient. Source: old records reviewed Medical History Lymphadenopathy Missed menses History of asthma Surgical History Hx of shoulder surgery Family History Family History Maternal Grandmother History of breast cancer Ovarian cancer Father Diabetes mellitus Hypertension Mother Diabetes mellitus Substance use disorder Mental health disorder Maternal Uncle Substance use disorder Mental health disorder Social History Social History Housing: House Alcohol intake: current Alcohol intake frequency: holidays/special occasions only Patient Tobacco Use Status: Never used Tobacco e-Cigarette/Vaping Use: Never Used Second Hand Smoke Exposure: Yes Substance Use Type: Marijuana service: No Current occupational status: employed 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 No acute distress.?Normal affect. Eyes: Pupils equal, round and reactive to light.? ENT: Pharynx normal.?? Neck: Normal inspection.? Neck supple.?? CVS: Heart sounds normal. Normal heart rate and rhythm.? Pulses normal.?? Respiratory: No respiratory distress.? Lung sounds clear to auscultation bilaterally?? Abdomen: Soft with suprapubic and left lower quadrant tenderness upon palpation. No rigidity or guarding. No CVA tenderness.Normoactive bowel sounds. No pulsatile mass.?? Skin: Skin warm and dry.? Normal skin color.? Extremities: No lower extremity edema.? Neuro: Moves all extremities spontaneously. Sensation intact bilaterally. Ambulates with normal steady gait. Course Reevaluation(s) Reevaluation #1: HCG level of 163 you would not correspond with gestation of 10 weeks based on her last menstrual period. Ultrasound is without evidence of intrauterine , there was mild thickening of the endometrium, normal ovaries. These findings were discussed with patient. She does state that her menstrual cycle can be irregular, she admits to her positive test being 03/29/2025 I did advise her that this may be very early in which her hCG levels could not anticipate being low and we would not see positive sonographic findings of at this time versus a missed miscarriage, advised 48 hour repeat hCG for trending, she is currently a patient with [facility], she will contact their office tomorrow to arrange for follow-up. Given strict return precautions. All questions answered. Stable for discharge Medical Decision Making Medical Decision Making [facility] Narrative: Patient is a 30-year-old female presenting for evaluation of vaginal spotting as well as left lower quadrant pain over the past 3 days as per HPI. Overall she appears well, nontoxic, she is afebrile. She has a mild tenderness over the mid lower abdomen / suprapubic region as well as left lower quadrant without rigidity or guarding. She is not hypotensive. LMP 01/24/2025, making GAL[place]O 10/31/2025. she denies associated genitourinary symptoms. She has no CVAT to suggest renal colic secondary to calculi or pyelonephritis. Positive HC will require pelvic ultrasound to rule out ectopic versus ruptured ovarian cyst, she has lack of concern for sexually transmitted infection no recent abnormal discharge, lower suspicion for tubo-ovarian abscess/PID /ovarian torsion. she denies associated gastrointestinal symptoms to suggest IBS gastroenteritis. US OB 1st trimester transabdominal and transvaginal for improved visualization. Comparison: None Findings: No gestational sac, yolk sac or pole identified. There is thickening of the endometrium measuring up to 12 mm. The right ovary measures 2.7 x 2.0 x 2.3 cm. The left ovary measures 3.1 x 2.2 times 2.5 cm. 11 mm probable cyst noted. Normal color Doppler. Impression: There is no intrauterine gestation identified. The endometrium is mildly thickened at 12 mm. The ovaries appear normal. Differential Diagnosis Differential Diagnoses: The differential diagnosis associated with the presentation includes (See narrative above) Lab Data [facility] Lab Attestation statement: I reviewed the patient's lab results. CBC is without leukocytosis anemia or thrombocytopenia. No significant electrolyte derangement. No VENUS. HCG of 163. Rh positive. Urinalysis without evidence of infection or microscopic hematuria. 04/05/25 08:16 04/05/25 08:16 Labs: Lab Results 04/05/25 04/05/25 04/05/25 Range/Units 08:16 08:48 09:13 WBC 7.7 (4.8-10.8) X10*3/uL RBC 4.54 (4.20-5.50) X10*6/uL Hgb 13.3 (12.0-16.0) g/dl Hct 39.5 (37.0-47.0) % MCV 87.0 (80.0-98.0) fL MCH 29.3 (27.0-33.0) pg MCHC 33.7 (31.0-35.0) g/dl RDW 12.4 (11.0-16.0) % Plt Count 267 (160-400) X10*3/uL MPV 10.1 (9.4-12.3) fL Immature Gran % (Auto) 0.1 (0.0-0.4) % Neut % (Auto) 69.7 (45-73) % Lymph % (Auto) 22.1 (20-40) % [place] % (Auto) 6.9 (2-11) % Eos % (Auto) 0.7 (0-4) % Baso % (Auto) 0.5 (0-2) % Lymph # (Auto) 1.7 (1.2-4.9) X10*3/uL [place] # (Auto) 0.5 (0.1-1.2) X10*3/uL Eos # (Auto) 0.1 (0.0-0.4) X10*3/uL Baso # (Auto) 0.0 (0.0-0.2) X10*3/uL Abs Immat Gran (auto) 0.01 (0.00-0.03) X10*3/uL Absolute Neuts (auto) 5.3 (2.0-8.3) x10*3/uL Absolute Nucleated RBC 0.000 (0.0-0.012) X10*3/uL Nucleated RBC % (auto) 0.0 (0.0-0.2) /100WBC Sodium 137 (135-145) mmol/L Potassium 3.8 (3.3-5.1) mmol/L Chloride 107 (96-108) mmol/L Carbon Dioxide 21 L (22-29) mmol/L Anion Gap 13 (12-20) BUN 8 L (9-16) mg/dL Creatinine 0.68 (0.5-1.4) mg/dL Estim Creat Clear Calc 138.4 Estimated GFR > 60 Random Glucose 123 H (60-115) mg/dL Calcium 9.1 (8.4-10.2) mg/dL Total Bilirubin 0.5 (0.0-1.0) mg/dL Direct Bilirubin 0.2 (0.0-0.5) mg/dL AST 19 (5-31) U/L ALT 18 (0-31) U/L Alkaline Phosphatase 65 (39-117) U/L Total Protein 7.0 (6.5-8.0) g/dL Albumin 4.2 (3.5-5.0) g/dL Lipase 16 (8-78) U/L Beta HCG, Quant 163 mIU/mL Urine Color Yellow Urine Appearance Clear Urine pH 7.5 (5.0-9.0) Ur Specific [place] 1.015 (1.005-1.025) Urine Protein Negative (Neg-Trace) mg/dL Urine Glucose (UA) Negative (Negative) mg/dL Urine Ketones Negative (Negative) mg/dL Urine Blood Negative (Negative) Urine Nitrite Negative (Negative) Ur Leukocyte Esterase Negative (Negative) Blood Type A Positive Radiology Impression Discussion of test interpretation with radiology: I have reviewed the radiologist's reading. Radiologist Impression: US OB 1st trimester transabdominal and transvaginal for improved visualization. Comparison: None Findings: No gestational sac, yolk sac or pole identified. There is thickening of the endometrium measuring up to 12 mm. The right ovary measures 2.7 x 2.0 x 2.3 cm. The left ovary measures 3.1 x 2.2 times 2.5 cm. 11 mm probable cyst noted. Normal color Doppler. Impression: There is no intrauterine gestation identified. The endometrium is mildly thickened at 12 mm. The ovaries appear normal. External Record Review External record reviewed: Outpatient record Discharge Plan Discharge Clinical Impression: Vaginal bleeding Patient Disposition: Home, Self-Care Instructions: Abnormal (Dysfunctional) Uterine Bleeding (ED) Additional Instructions: Your blood level; your hCG was low at 163. If your last menstrual period was 01/24/2025, you should be approximately 10 weeks and should be higher at this point. Your ultrasound does not show evidence of a current within the uterus. Your ovaries are normal-appearing. Your endometrium or the wall of the lining of the uterus was noted to be thickened. It is possible that the obtaining of your is an accurate, you could be very newly which could correspond with low hCG levels and no evidence of current on ultrasound due to its early onset. It is also possible that this may correspond with a recent miscarriage. After a miscarriage it does take time for the blood levels/hCG to return back to normal. I suggest that you have close outpatient follow-up with your OBGYN for further monitoring, contact them for follow-up in next 24 hours, repeat hcg. US OB 1st trimester transabdominal and transvaginal for improved visualization. Comparison: None Findings: No gestational sac, yolk sac or pole identified. There is thickening of the endometrium measuring up to 12 mm. The right ovary measures 2.7 x 2.0 x 2.3 cm. The left ovary measures 3.1 x 2.2 times 2.5 cm. 11 mm probable cyst noted. Normal color Doppler. Impression: There is no intrauterine gestation identified. The endometrium is mildly thickened at 12 mm. The ovaries appear normal. You were seen in our Emergency Department for an early test being positive and abdominal pain/and or vaginal bleeding. It is very early on and your symptoms require repeat testing and monitoring. Your initial ultrasound did not confirm a in your uterus. You need repeat testing of your blood test (hcg) in 48 hours. Another Ultrasound may also need to be done in 5 days, this should be determined by your outpatient provider. These tests can be done at your primary care office, OBGYN office, or the Emergency Department if you cannot reach your outside providers. After discharge please monitor your symptoms and seek immediate care for bleeding heavier than a period, severe abdominal pain, fainting, or any other concerns. Please see list of local OBGYN providers below: OBGYN and Midwifery [facility] [address] [phone] [facility] [address] [phone] OBGYN and Midwifery [place] [phone] [facility] [place] [phone] Prescriptions: No Action [id number] [Fioricet with Codeine] 80-789-65-30 mg capsule 1 cap PO .q6 PRN (Reason: pain) Qty: 5 0RF Nexplanon 68 mg implant subdermal Referrals: Jerry Turner, [employer] [Primary Care Provider] - Interventions: ED Discharge Assessment Last Done: 04/05/25 14:32 Discharge Date/Time: 04/05/25 14:33 Print Language: Cape Verdean
[2025-04-05 08:42] LABS: Anion Gap 13 (12-20); Blood Urea Nitrogen 8 mg/dL (9-16); Calcium 9.1 mg/dL (8.4-10.2); Carbon Dioxide 21 mmol/L (22-29); Chloride 107 mmol/L (96-108); Creatinine Clr Calc Pharmacy 138.4; Estimated Glomerular Filt Rate > 60; Glucose Random 123 mg/dL (60-115); Potassium 3.8 mmol/L (3.3-5.1); Sodium 137 mmol/L (135-145)
[2025-04-05 08:45] LABS: HCG Quantitative 163 mIU/mL
--- OUTSIDE RECORDS SUMMARY | 2025-04-05 08:51 | XMS_ITS | Encounter Summary ---
Author Organization [facility] Address [address] [place] [address] Phone Care Team Providers Care Assistant Professor Of Life Sciences Name Role Phone Filomena Means DO Primary Care Provider [phone] Encounter Details Date Type Department Care Team (Late st Contact Info) Description 05/31/2015 Documentation [facility] [place] Family Medicine [address] [place] [address] Family Medicine, Physician [facility] [place], [place] [id number] Social History Tobacco Use Types Packs/Day Years Used Date Smoking Tobacco: Never Assessed Comments Unknown Sex and Gender Information Value Date Recorded Sex Assigned at Not on file Legal Sex Female 1:55 PM EDT Gender Identity Not on file Sexual Orientation Not on file documented as of this encounter Plan of Treatment Not on file documented as of this encounter Visit Diagnoses Not on filedocumented in this encounter Care Teams Assistant Professor Of Life Sciences Relationship Specialty Start Date End Date Filomena Means DO [address] [place] [address] PCP - General 06/29/17 03/15/23 documented as of this encounter
--- OUTSIDE RECORDS SUMMARY | 2025-04-05 08:51 | XMS_ITS | Clinical Summary ---
Author Organization [facility] Address [address] [place] [address] Care Team Providers Care Sales Coach Name Role Phone Unavailable Primary Care Provider Unavailabl e Medical History Medical History Date Comments Anxiety disorder DX:Anxiety diso rder Marijuana use DX:Marijuana use Social History Tobacco Use Types Packs/Day Years Used Date Smoking Tobacco: Never Smokeless Tobacco: Never Alcohol Use Standard Drinks/Week Comments Not Currently 0 (1 standard drink = 0.6 oz pur e alcohol) Comments Unknown Sex and Gender Information Value Date Recorded Sex Assigned at Not on file Legal Sex Female 3:40 AM EST Gender Identity Not on file Sexual Orientation Not on file Obstetrics History Plan of Treatment Health Maintenance Due Date Last Done Comments DTaP,Tdap,and Td Vaccines (1 - Tdap) 01/24/2016 Hepatitis B Vaccines (1 of 3 - 19+ 3-dose series) 01/24/2016 Cervical Cancer Screening: P ap Smear 2018 Depression Screening 10/22/2022 HIV Screening 10/22/2022 Hepatitis C Screening 10/22/2022 Social Influencers of Health Screening 10/22/2022 COVID-19 Vaccine ( - 2023-2 5 season) 2024 Influenza Vaccine (Season Ended) 2025 HIB Vaccines Aged Out No longer eligi ble based on patient's age to complete this topic HPV Vaccines Aged Out No longer eligi ble based on patient's age to complete this topic Hepatitis A Vaccines Aged Out No long er eligible based on patient's age to complete this topic IPV Vaccines Aged Out No longer eligi ble based on patient's age to complete this topic MMR Vaccines Aged Out No longer eligi ble based on patient's age to complete this topic Meningococcal ACWY Vaccine Aged Out N o longer eligible based on patient's age to complete this topic Meningococcal B Vaccine Aged Out No l onger eligible based on patient's age to complete this topic Pneumococcal Vaccine: Pediat rics (0 to 5 Years) and At-Risk Patients (6 to 64 Years) Aged Out No longer eligible b ased on patient's age to complete this topic RSV Immunization Patients Un kimi 20 months Aged Out No longer eligible b ased on patient's age to complete this topic Varicella Vaccines Aged Out No longer eligible based on patient's age to complete this topic
--- OUTSIDE RECORDS SUMMARY | 2025-04-05 08:51 | XMS_ITS | Encounter Summary ---
Author Organization [facility] Address [address] [place] [address] Phone Care Team Providers Care Engraver Set Up Operator Name Role Phone Filomena Means DO Primary Care Provider [phone] Encounter Details Date Type Department Care Team (Late st Contact Info) Description 12/22/2014 Documentation [facility] [place] Family Medicine [address] [place] [address] Family Medicine, Physician [facility] [place], [place] [phone] Social History Tobacco Use Types Packs/Day Years [...] on filedocumented in this encounter Care Teams Engraver Set Up Operator Relationship Specialty Start Date End Date Filomena Means DO [address] [place] [address] PCP - General 06/29/17 03/15/23 documented as of this encounter
--- OUTSIDE RECORDS SUMMARY | 2025-04-05 08:51 | XMS_ITS | Encounter Summary ---
Author Organization [facility] Address [address] [place] [address] Phone Care Team Providers Care Spiral Machine Operator Name Role Phone Filomena Means DO Primary Care Provider [phone] Encounter Details Date Type Department Care Team ([facility] Contact Info) Description 07/05/2017 Conversion Encounter [facility] [address] [place] [address] Social History Tobacco Use Types Packs/Day Years Used Date Smoking Tobacco: Never Comments:Never smoker Comments Unknown Sex and Gender Information Value Date Recorded Sex Assigned at Not on file Legal Sex Female 1:55 PM EDT Gender Identity Not on file Sexual Orientation Not on file documented as of this encounter Plan of Treatment Not on file documented as of this encounter Visit Diagnoses Not on filedocumented in this encounter Care Teams Spiral Machine Operator Relationship Specialty Start Date End Date Filomena Means DO [address] [place] [address] PCP - General 06/29/17 03/15/23 documented as of this encounter
--- OUTSIDE RECORDS SUMMARY | 2025-04-05 08:51 | XMS_ITS | Encounter Summary ---
Author Organization [facility] Address [address] [place] [address] Phone Care Team Providers Care Hydration Plant Operator Name Role Phone Filomena Means DO Primary Care Provider [phone] Reason for Visit * Reason Comments Med Refill Encounter Details Date Type Department Care Team ([facility] Contact Info) Description 07/17/2018 Refill [facility] [address] [place] [address] Filomena Means DO [address] [place] [address] Encounter for BCP ( control pills) initial prescription Social History Tobacco Use Types Packs/Day Years Used Date Smoking Tobacco: Never Smokeless Tobacco: Never Comments:Never smoker Alcohol Use Standard Drinks/Week Comments No 0 (1 standard drink = 0.6 oz pur e alcohol) Comments Unknown Sex and Gender Information Value Date Recorded Sex Assigned at Not on file Legal Sex Female 1:55 PM EDT Gender Identity Not on file Sexual Orientation Not on file documented as of this encounter Miscellaneous Notes * Telephone Encounter - Bowen Segura LPN - 07/17/2018 4:04 PM EDT Pharm is requesting refill on control. Last PE 05/04/17. Ph has PE scheduled for 09/13/18 documented in this encounter Plan of Treatment Not on file documented as of this encounter Visit Diagnoses Diagnosis Encounter for BCP ( control pills) initial prescription General counseling for prescription of oral contraceptives documented in this encounter Care Teams Hydration Plant Operator Relationship Specialty Start Date End Date Filomena Means DO [address] [facility] [place] [address] PCP - General 06/29/17 03/15/23 documented as of this encounter
--- OUTSIDE RECORDS SUMMARY | 2025-04-05 08:51 | XMS_ITS | Encounter Summary ---
Author Organization [facility] Address [address] [place] [address] Phone Care Team Providers Care 3Rd Grade Reading Teacher Name Role Phone Filomena Means DO Primary Care Provider [phone] Encounter Details Date Type Department Care Team (Late st Contact Info) Description 08/26/2014 Documentation [facility] [place] [address] [place] [address] Family Medicine, Physician [address] [place], [place] [phone] Social History Tobacco Use Types Packs/Day Years [...] on filedocumented in this encounter Care Teams 3Rd Grade Reading Teacher Relationship Specialty Start Date End Date Filomena Means DO [address] [place] [address] PCP - General 06/29/17 03/15/23 documented as of this encounter
--- OUTSIDE RECORDS SUMMARY | 2025-04-05 08:51 | XMS_ITS | Encounter Summary ---
Author Organization [facility] Address [address] [place] [address] Phone Care Team Providers Care Gas Pumping Station Operator Name Role Phone Filomena Means DO Primary Care Provider [phone] Encounter Details Date Type Department Care Team (Late st Contact Info) Description 02/26/2015 Documentation [facility] [place] [address] [place] [address] Family Medicine, Physician [facility] [place] [phone] Social History Tobacco Use Types Packs/Day Years [...] on filedocumented in this encounter Care Teams Gas Pumping Station Operator Relationship Specialty Start Date End Date Filomena Means DO [address] [place] [address] PCP - General 06/29/17 03/15/23 documented as of this encounter
--- OUTSIDE RECORDS SUMMARY | 2025-04-05 08:51 | XMS_ITS | Encounter Summary ---
Author Organization [facility] Address [address] [place] [address] Phone Care Team Providers Care Driver Utility Worker Name Role Phone Filomena Means DO Primary Care Provider [phone] Reason for Visit * Reason Comments Med Refill Encounter Details Date Type Department Care Team ([facility] Contact Info) Description 09/19/2018 Refill [facility] [address] [place] [address] Filomena Means DO [address] [place] [address] Encounter for BCP ( control pills) initial [...] contraceptives documented in this encounter Care Teams Driver Utility Worker Relationship Specialty Start Date End Date Filomena Means DO [address] [place] [address] PCP - General 06/29/17 03/15/23 documented as of this encounter
--- OUTSIDE RECORDS SUMMARY | 2025-04-05 08:51 | XMS_ITS | Encounter Summary ---
Author Organization [facility] Address [address] [place] [address] Phone Care Team Providers Care Green Lumber Grader Name Role Phone Filomena Means DO Primary Care Provider [phone] Encounter Details Date Type Department Care Team (Late st Contact Info) Description 04/17/2014 [place]ation [facility] [place] [address] [place] [address] Family Medicine, Physician [address] [place], [place] [phone] Social History Tobacco Use Types Packs/Day Years [...] on filedocumented in this encounter Care Teams Green Lumber Grader Relationship Specialty Start Date End Date Filomena Means DO [address] [place] [address] PCP - General 06/29/17 03/15/23 documented as of this encounter
--- OUTSIDE RECORDS SUMMARY | 2025-04-05 08:51 | XMS_ITS | Clinical Summary ---
Author Organization [facility] Address [address] [place] [id number] Phone Care Team Providers Care Director Of Hotel Name Role Phone Unavailable Primary Care Provider Unavailabl e Allergies No known active allergies Medications Calcium Carbonate-Vitamin D (CALCIUM-VITAMIN D) 500-200 MG-UNIT tablet CALCIUM 500-VIT D3; 500 MG CALCIUM (1,250 MG)-200 UNIT{tbl}; 09/24/2015; Active Active polyethylene glycol (MIRALAX) powderIndications :Epigastric pain Take 17 g by mouth daily. Stir and dissolve powder into 4 to 8 ounces of beverage and then drink. 850 g 11 8 Active omeprazole 20 MG delayed-release capsuleIndication s:GERD without esophagitis Daily prn 60 capsule 1 8 Active norethindrone-eth inyl estradiol (MICROGESTIN) 1-20 MG-MCG per tabletIndications :Encounter for control pills maintenance Take 1 tablet by mouth daily. 63 tablet 1 9 Active PROAIR HFA 108 (90 Base) MCG/ACT inhalerIndication s:Mild intermittent asthma without complication Inhale 2 puffs every 4 (four) hours as needed for wheezing. 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 Monique GI- colo neg; may have IBS; neg screen for celiac; probiotics and miralax QD rec. Assessment & Plan (10/24/2018 1:28 PM EST): Better with miralax daily Mild intermittent asthma without complication Overview (10/24/2018): Prn proair Menstrual disorder 07/05/2012 Overview (10/23/2018): On OCP; saw CONVEYOR BELT INSTALLER summer 2017 Assessment & Plan (10/24/2018 1:32 PM EST): We discussed LARCs as a good option for her; she will call CONVEYOR BELT INSTALLER to set up appt. Immunizations Immunization Administration Dates Next Due DTP 07/28/1998, 7,1997,04/01 DTaP 5 02/20/2001 HPV, Quadrivalent 07/03/2011,02/27/2011,12/14/19 11 Hep A, ped/adol 09/24/2015,07/29/2014 Hep B, ped/adol 1997,1997,1997 Hib (PRP-T) 04/29/1998, 7,1997,04/01 IPV 02/20/2001 Influenza Split 12/14/2010 Influenza, injectable, quadr ivalent, preservative free 09/24/2018,07/27/2017,09/24/2015,07/29,08/27/2013 Influenza, injectable, trivalent 08/20/2009 MMR 02/20/2001,01/27/1998 Meningococcal Conj (Menactra) MCV4P 07/29/2014,0 07/29/2008 OPV 1997,1997,1997 Td (adult) ([facility]), 5 Lf t etanus toxoid, PF, adsorbed 07/17/2018 Tdap 07/29/2008 Varicella 07/29/2008,07/28/1998 Family History Medical History Relation Name Comments Hypertension Father Lymphoma Maternal Grandmother Relation Name Status Comments Brother Alive Brother: Alive and well Father Alive Father: Alive a nd well Maternal Grandmother Mother Mother: Systemi c lupus erythematosus, SJOGRENS Other Family history of *Heart Disease, Family history of Obesity, Family history of *Thrombophilia, No family history of Deafness, Family history of ADD/ADHD, Family history of Strabismus, Family history of Cancer - breast , lungs , brai, Family history of Diabetes mellitus, Family history of *CVA/Stroke, Family history of Developmental dislocation of hip, No family history of Seizure disorder, Family history of Migraines, Family history of Asthma, Family history of Hyperlipidemia, Family history of *Dental caries, No family history of *Sudden /CA under 55 Sister Alive Sister: Alive a nd well Social History Tobacco Use Types Packs/Day Years Used Date Smoking Tobacco: Never Smokeless Tobacco: Never Comments:Never smoker Alcohol Use Standard Drinks/Week Comments No 0 (1 standard drink = 0.6 oz pur e alcohol) Hunger/Food Answer Date Recorded No 12/04/2018 Stable Housing Answer Date Recorded 0 12/04/2018 Transportation Concerns Answer Date Rec orded No 12/04/2018 Hazards in Home Answer Date Recorded No 12/04/2018 Financing Utilities Answer Date Recorde d No 12/04/2018 Safety at Home Answer Date Recorded No 12/04/2018 Outside Support Answer Date Recorded Yes 12/04/2018 Understanding Health Concerns Answer Da te Recorded No 12/04/2018 Financing Health Concerns Answer Date R ecorded No 12/04/2018 Missing School or Work Answer Date Phu rded No 12/04/2018 Comments No Sex and Gender Information Value Date Recorded Sex Assigned at Not on file Legal Sex Female 1:55 PM EDT Gender Identity Not on file Sexual Orientation Not on file Last Filed Vital Signs Vital Sign Reading Time Taken Comments Blood Pressure 101/66 01/20/2019 10:58 AM EST Pulse 84 01/20/2019 10:58 AM EST Temperature 36.3 ??C (97.3 ??F) 01/20/2019 1 0:58 AM EST Respiratory Rate - - Oxygen Saturation 100% 12/23/2018 6:06 PM EST Inhaled Oxygen Concentration - - Weight 70.7 kg (155 lb 12.8 oz) 019 10:58 AM EST Height 167.6 cm (5' 6 ) 01/20/2019 10:5 8 AM EST Body Mass Index 25.15 01/20/2019 10:58 AM EST Plan of Treatment Health Maintenance Due Date Last Done Comments Influenza Vaccines (#1) 2024 09/24/20 18, 07/27/2017, 09/24/2015, Additional history exists COVID-19 Vaccine ( season) 2024 DTaP,Tdap,and Td Vaccines (8 - Td or Tdap) 07/17/2028 07/17/2018, 07/29/2008, 02/20/2001, Additional history exists Hepatitis B Vaccines Completed 1997, 1997, 1997 HIB Vaccines Completed 04/29/1998, 07/20, 1997, Additional history exists IPV Vaccines Completed 02/20/2001, 07/20, 1997, Additional history exists MMR Vaccines Completed 02/20/2001, 01/27/1998 Varicella Vaccines Completed 07/29/2008, 07/28/1998 HPV Vaccines Completed 07/03/2011, 02/17, 12/14/2010 Meningococcal Vaccine Completed 07/29/2014, 008 Hepatitis A Vaccines Completed 09/24/2015, 07/29/20 14 Men B Vaccine Aged Out No longer elig ible based on patient's age to complete this topic Pneumococcal Vaccine Aged Out No long er eligible based on patient's age to complete this topic Procedures * Due to [place] [employer] law, this organization might not be sharing sensitive test results. Procedure Name Priority Date/Time Associated Diagnosis Comments CHLAMYDIA AND GONORRHEA, AMPLIFIED Routine 10/23/2018 3:10 PM EST Screening examination for bacterial and spirochetal disease from Last 3 Months or Most Recently Relevant to Health Maintenance Results * Due to [place] [employer] law, this organization might not be sharing sensitive test results. * Chlamydia and Gonorrhea, Amplified (10/23/2018 3:10 PM EST) Chlamydia Trachomatis, DNA Probe NEGATIVE (NEG) [facility] Comment: No Chlamydia Trachomatis RNA detected in this patient's sample ? (REFERENCE RANGE/NORMAL VALUE: NOT DETECTED) ? Note: This test uses director of special services- mediated amplification method to detect rRNA from C. Trachomatis URINE GC AMP PROBE NEGATIVE (NEG) [facility] Comment: No Neisseria Gonorrhoeae RNA detected in this patient's sample ? (REFERENCE RANGE/NORMAL VALUE: NOT DETECTED) ? NOTE: This test uses director of special services-mediated amplification method to detect rRNA from N.Gonorrhoeae. A negative result does not preclude infection. In the case of a negative urine result, testing of an endocervical(female) or urethral (male) specimen is recommended if there is high clinical suspicion of infection. Due to very high sensitivity of Nucleic Acid Amplification Test, false positive results may occur. Therefore, specimen handling is extremely important. In patients in whom the disease is unlikely, additional sample for testing should be considered after an initial positive result. The performance characteristics of this test have not been evaluated in children. The Aptima Combo2 assay is not intended for the evaluation of suspected sexual abuse or for other medico-legal indications. The ordering provider should assess if the patient had consensual sex without risk of sexual abuse. Consult the [facility] if needed. Contact phone number . Therapeutic failure or success cannot be determined with the Aptima Combo2 assay since nucleic acid may persist following appropriate antimicrobial therapy. The Centers for Disease Control and Prevention (CDC) recommends confirmatory retesting using culture or a different nucleic acid amplification test when positive results occur, if indicated. Testing performed or reported by [facility], a Service of [facility], [facility] [address], [place] [address] CLIA [id number] eDlmar Castro MD, Binding End Stitcher Urine 10/23/2018 3:10 PM EST 10/24/2018 12:29 AM EST Filomena Means DO LAB MICROBIOLOGY - GENERAL ORDER VAL Final Result [facility] from Last 3 Months or Most Recently Relevant to Health Maintenance
--- OUTSIDE RECORDS SUMMARY | 2025-04-05 08:51 | XMS_ITS | Encounter Summary ---
Author Organization [facility] Address [address] [place] [address] Phone Care Team Providers Care Bisque Kiln Drawer Name Role Phone Filomena Means DO Primary Care Provider [phone] Encounter Details Date Type Department Care Team (Late st Contact Info) Description 12/22/2014 Documentation [facility] [address] [place] [address] Family Medicine, Physician [facility] [place] [phone] Social History Tobacco Use Types Packs/Day Years [...] on filedocumented in this encounter Care Teams Bisque Kiln Drawer Relationship Specialty Start Date End Date Filomena Means DO [address] [place] [address] PCP - General 06/29/17 03/15/23 documented as of this encounter
--- OUTSIDE RECORDS SUMMARY | 2025-04-05 08:51 | XMS_ITS | Encounter Summary ---
Author Organization [facility] Address [address] [place] [address] Phone Care Team Providers Care Asphalt Blender Name Role Phone Filomena Means DO Primary Care Provider [phone] Encounter Details Date Type Department Care Team (Late st Contact Info) Description 03/09/2017 Documentation [facility] [place] Medicine [address] [place] [address] Family Medicine, Physician [facility] [place], [place] [phone] Social History Tobacco Use Types Packs/Day Years [...] on filedocumented in this encounter Care Teams Asphalt Blender Relationship Specialty Start Date End Date Filomena Means DO [address] [place] [address] PCP - General 06/29/17 03/15/23 documented as of this encounter
--- OUTSIDE RECORDS SUMMARY | 2025-04-05 08:51 | XMS_ITS | Encounter Summary ---
Author Organization [facility] Address [address] [place] [address] Phone Care Team Providers Care Transitions Rn Care Coordinator Name Role Phone Filomena Means DO Primary Care Provider [phone] Encounter Details Date Type Department Care Team (Late st Contact Info) Description 09/28/2015 Documentation [facility] [place] [facility] [address] [place] [address] Family Medicine, Physician [address] [place] [phone] Social History Tobacco Use Types Packs/Day Years [...] on filedocumented in this encounter Care Teams Transitions Rn Care Coordinator Relationship Specialty Start Date End Date Filomena Means DO [address] [place] [address] PCP - General 06/29/17 03/15/23 documented as of this encounter
--- OUTSIDE RECORDS SUMMARY | 2025-04-05 08:51 | XMS_ITS | Encounter Summary ---
Author Organization [facility] Address [address] [place] [phone] Phone Care Team Providers Care Regulatory Affairs Spec Name Role Phone Filomena Means DO Primary Care Provider [phone] Encounter Details Date Type Department Care Team (Late st Contact Info) Description 07/14/2015 Documentation [facility] [place] [facility] [address] [place] [address] Family Medicine, Physician [facility] [place], [place] [phone] Social History Tobacco Use Types Packs/Day Years [...] on filedocumented in this encounter Care Teams Regulatory Affairs Spec Relationship Specialty Start Date End Date Filomena Means DO [address] [place] [address] PCP - General 06/29/17 03/15/23 documented as of this encounter
[2025-04-05 09:10] LABS: Alanine Aminotransferase 18 U/L (0-31); Albumin Level 4.2 g/dL (3.5-5.0); Alkaline Phosphatase 65 U/L (39-117); Aspartate Amino Transferase 19 U/L (5-31); Bilirubin Direct 0.2 mg/dL (0.0-0.5); Bilirubin Total 0.5 mg/dL (0.0-1.0); Lipase 16 U/L (8-78)
[2025-04-05 09:19] LABS: Appearance Urine Clear; Color Urine Yellow; Glucose Urine UA Negative (Negative); Leukocyte Esterase Urine Negative (Negative); Nitrite Urine Negative (Negative); PH 7.5 (5.0-9.0); Specific Gravity - Urine 1.015 (1.005-1.025); Urine Blood Negative (Negative); Urine Ketones Negative (Negative); Urine Protein Negative (Neg-Trace)
--- NOTE | 2025-04-05 09:30 | PC.NURSE ---
patient a&ox3, labs drawn, urine obtained, vss, pt has had c/o LLQ abd pain, call thompson within reach, plan of care ongoing.
[2025-04-05 12:00] VITALS: BP 112/69; PULSE 85; RESP 18; TEMP 36.8; O2SAT 99
--- NOTE | 2025-04-05 13:27 | PC.NURSE ---
patient a&ox3, vss, pt awaiting results of ultrasound, call thompson within reach, plan of care ongoing.
[2025-04-05 14:26] VITALS: BP 116/68; PULSE 87; RESP 19; TEMP 36.8; O2SAT 99
[2025-04-05 14:32] VITALS: BP 112/70; PULSE 80; RESP 18; TEMP 36.7; O2SAT 96
== END 2025-04-05 14:33 | disposition home or self-care (01) ==
PROVIDERS: Nurse Practitioner Family; Emergency Provider Emergency Medicine; PCP Nurse Practitioner Family
DX: N93.9 Abnormal uterine and vaginal bleeding, unspecified (principal); R10.32 Left lower quadrant pain
CPT/HCPCS: 36415; 76801; 76817; 80048; 80076; 81003; 83690; 84702; 85025; 86900; 86901; 99284

== ENCOUNTER → 2025-04-05 09:05 | Outpatient (BNV) | payer OTHER, SELFPAY | PROVIDERS: Emergency Provider Emergency Medicine; PCP Nurse Practitioner Family; Visit Provider Radiology Vascular & Interventional Radiology | DX: O99.891 Other specified diseases and conditions complicating pregnancy (principal); R10.32 Left lower quadrant pain; Z3A.01 Less than 8 weeks gestation of pregnancy | CPT/HCPCS: 76801; 76817 ==

== ENCOUNTER 2025-04-14 18:42 | Emergency (ER) | payer OTHER, SELFPAY ==
--- NOTE | ~2025-04-14 | XR_ITS ---
CLINICAL HISTORY: fall, twisting pop 4 view left knee Comparison: None Findings: No fractures or dislocations. No significant loss of joint space, osteophytes, or erosions. No joint effusion. No radiopaque foreign body. IMPRESSION: 1. No acute findings. This document has been electronically signed by: Sharon Bui MD on 04/14/2025 20:26:21
[2025-04-14 19:11] VITALS: BP 112/63; PULSE 85; RESP 16; TEMP 36.9; O2SAT 98; BMI 32.3
--- NOTE | 2025-04-14 19:11 | ED_ITS ---
HPI - Extremity Injury (Lower) General Chief Complaint: Extremity Injury, Lower Stated Complaint: L knee pain Time Seen by Provider: 04/14/25 22:38 Source: patient Mode of arrival: ambulatory Limitations: no limitations History of Present Illness ED Provider: Dr. Nathaly Holland HPI Narrative: Previously healthy 30-year-old female presenting after twisting her left knee while chasing after her child in traffic. She reports her foot fell into a snake hole while she was running after her son who was going towards the road. She awkwardly twisted her knee inward and behind her while doing so. Was able to ambulate after the injury but developed pain that radiated from the inner aspect of the knee to her hip and down to her ankle. She did not fall or hit her head. No other injuries. Of note, patient was seen here last week while having a potential miscarriage. Reports that she has fully miscarried and is no longer . Has not taken anything for pain at home. Denies num bness/tingling/weakness of the foot. Related Data Home Medications ?Medication ?Instructions ?Recorded ?Confirmed etonogestrel 68 mg subdermal subdermal 01/03/24 implant (Nexplanon) Previous Rx's ?Medication ?Instructions ?Recorded butalbital 50 mg-acetaminophen 300 1 cap PO .q6 PRN pain #5 caps 04/17/24 mg-caffeine 40 mg-codeine 30 mg cap (Fioricet with Codeine) Allergies Allergy/AdvReac Type Severity Reaction Status Date / Time No Known Allergies Allergy Verified 04/14/25 19:11 Review of Systems Review of Systems: As per HPI Yes all other systems are reviewed and are negative FOR[facility]LY [facility] Past Medical History Attestation statement: The following information was validated with the patient. FOR[facility]LY [facility], [facility] Narrative: Recent miscarriage, denies alcohol, tobacco use Source: old records reviewed and nursing notes reviewed Medical History Lymphadenopathy Missed menses History of asthma Surgical History Hx of shoulder surgery Family History Family History Maternal Grandmother History of breast cancer Ovarian cancer Father Diabetes mellitus Hypertension Mother Diabetes mellitus Substance use disorder Mental health disorder Maternal Uncle Substance use disorder Mental health disorder Social History Social History Housing: House Alcohol intake: current Alcohol intake frequency: holidays/special occasions only Patient Tobacco Use Status: Never used Tobacco e-Cigarette/Vaping Use: Never Used Second Hand Smoke Exposure: Yes Substance Use Type: Marijuana service: No Current occupational status: employed Current occupation: [employer] Current occupational exposures/hazards: No Sexual orientation: Straight/Heterosexual Gender identity: Female Cognitive needs: No Hearing needs: No Vision needs: No Physical Exam Vital Signs: Vital Signs: Last Vital Signs Temp 97.7 F 04/14/25 22:29 Pulse 92 04/14/25 22:29 Resp 20 04/14/25 22:29 BP 132/92 H 04/14/25 22:29 Pulse Ox 100 04/14/25 22:29 O2 Del Method Room Air 04/14/25 22:29 BMI result Body Mass Index 32.3 Exam: Constitutional: ?Well-appearing, no acute distress HEENT: ?No lymphadenopathy, neck is supple, trachea midline, PERRLA, EOMI, no nystagmus Chest: ?Equal rise, no crepitus, no deformities Respiratory: ?Lungs are clear to auscultation bilaterally, no wheezes/rales/ rhonchi Cardio: ?Regular rate and rhythm, no murmurs rubs or gallops, peripheral pulses strong GI: ?Soft, nondistended, nontender to palpation, positive bowel sounds in all quadrants : Deferred Skin: ?Warm, dry, no rashes Musculoskeletal: ?No deformities, normal tone, tenderness to palpation overlying the medial aspect of the left knee, negative anterior and posterior drawer tests, negative Andreea's test, neurovascularly intact distally, no joint effusion Neuro: ?Alert and oriented, cranial nerves 2-12 intact, equal strength and sensation in bilateral upper and lower extremities Psych: ?Normal affect, appropriate mood, no visual or auditory hallucinations Course Course Course Narrative: This is a Rapid Medical Exam performed in triage by Carol Brock PA-C. Full HPI, ROS and PE to be performed by primary ED provider. 30 yo F presenting to the ED c/o L knee pain s/p trip & fall while chasing her toddler away from the road earlier today. admits to doing the splits & hearing knee pop . Admits to also falling in shower due to knee buckling/twisting denies HS or LOC PE: +mild L knee swelling & medial malleolar tenderness. Limited full flexion and extension secondary to pain. Neurovascularly intact distally. No crepitus or erythema Plan: X-ray Medical Decision Making Medical Decision Making MDM Narrative: 22-year-old female with no significant past medical history presenting after a twist of the knee. Differential diagnosis includes a knee sprain, meniscus tear, ligamentous injury, tibial plateau fracture, among others. X-ray reviewed by myself shows no evidence of bony injury, joint effusion. Patient is neurovascularly intact on exam. Plan for knee immobilizer, crutches, ortho follow-up as an outpatient. Patient understands and agrees with plan for dis charge. Discharged home in stable condition. Radiology Impression Discussion of test interpretation with radiology: I have reviewed the ra diologist's reading. Radiologist Impression: 4 view left knee Comparison: None Findings: No fractures or dislocations. No significant loss of joint space, osteophytes, or erosions. No joint effusion. No radiopaque foreign body. IMPRESSION: 1. No acute findings. This document has been electronically signed by: Sharon Bui MD on 04/14/2025 20:26:21 Discharge Plan Discharge Clinical Impression: Fall from ground level Left knee sprain Qualifiers: Encounter type: initial encounter Involved ligament of knee: unspecified ligament Qualified Code(s): S83.92XA - Sprain of unspecified site of left knee, initial encounter Patient Disposition: Home, Self-Care Instructions: Knee Sprain (ED) Prescriptions: No Action aerixemwnt-ochtpukiek-cht-cod [Fioricet with Codeine] [id number] mg capsule 1 cap PO .q6 PRN (Reason: pain) Qty: 5 0RF Nexplanon 68 mg implant subdermal Referrals: [facility] [place] Surgeons [Provider Group] Print Language: Yakut
[2025-04-14 22:29] VITALS: BP 132/92; PULSE 92; RESP 20; TEMP 36.5; O2SAT 100
[2025-04-14 23:22] VITALS: BP 120/70; PULSE 78; RESP 16; TEMP 36.4; O2SAT 97
--- NOTE | 2025-04-14 23:22 | MHC.EDTECH ---
This pct assumed care of Patient at 2300 ,vitals taken ,Crutches and knee Immoblizer given .Patient waiting for discharged Paper work .
[2025-04-14] MEDS: Ibuprofen 600 MG TABLET PO (23:27)
== END 2025-04-14 23:36 | disposition home or self-care (01) ==
PROVIDERS: Emergency Provider Emergency Medicine; PCP Nurse Practitioner Family
DX: S83.92XA Sprain of unspecified site of left knee, initial encounter (principal); M25.562 Pain in left knee; X58.XXXA Exposure to other specified factors, initial encounter; Y93.02 Activity, running; Y92.9 Unspecified place or not applicable; Y99.8 Other external cause status
CPT/HCPCS: 73562; 99283

== ENCOUNTER → 2025-04-14 19:14 | Outpatient (BNV) | payer OTHER, SELFPAY | PROVIDERS: PCP Nurse Practitioner Family; Visit Provider Radiology Diagnostic Radiology | DX: S83.92XA Sprain of unspecified site of left knee, initial encounter (principal); W19.XXXA Unspecified fall, initial encounter | CPT/HCPCS: 73562 ==

== ENCOUNTER 2025-04-21 15:38 | Outpatient (AMB) | payer OTHER, SELFPAY ==
--- NOTE | 2025-04-21 15:42 | AM.OFFWIN_ITS ---
Intake Vital Signs 04/21/25 15:44 Weight 199 lb BP 120/80 Blood Pressure Location Rt brachial Position Sitting Pulse 81 Pulse Source Pulse Oximeter Pulse Oximetry (%) 99 Oxygen Delivery Method Room Air Intake Visit Reasons: EP pain on LT knee & pressure on RT side of face Intake Note: Patient here for left knee pain after a fall about 2 weeks ago. she would also like to talk about back of right head pressure that has been present for about 4 days. Patient Tobacco Use Status: Never used Tobacco Allergies No Known Allergies Allergy (Verified 04/21/25 15:46) Do you need a note to return to daycare/school/sports/work: No HPI HPI Comments History of Present Illness Details History of Present Illness - The patient is a 30-year-old female pr esenting with worsening left knee pain following a sprain. - The incident occurred a week prior whe n she fell while running to catch her child and her foot became entrapped, causing her knee to buckle and emit a loud pop; she initially could not walk for 30 minutes. - The patient went to the ED on April 14 , where imaging ruled out fracture or effusion; however, she received an oversized brace that worsened symptoms with use. - Currently, the patient experiences med ial knee pain and buckling during certain movements. - She hasn't taken any anti-inflammatory medications. - The patient reports a secondary issue of pain originating from the shoulder extending to the neck, persisting for four days; a lump is noted in the shoulder area, indicating muscle spasm. Physical Exam General: Cooperative, healthy appearing, comfortable, no acute distress and well developed Orientation: Patient oriented x3 Limitations: none Head: Normal to inspection Ears: Hearing grossly normal bilaterally Nose: Normal External nose present Face and sinus: Normal facial exam Eyes: Appearance normal, both eyes and all related structures Neck: Normal visual inspection, muscle spasm noted left side Respiratory: Normal respiratory effort and able to speak in complete sentences. Skin: No rashes or lesions noted Neuro: Patient oriented x3, limping gait Extremities: Left knee joint laxity medial and lateral sides. no patellar ballotement, no TTP otherwise. no skin changes or ecchymosis. Full ROM and otherwise normal to inspection. [facility], LAT[facility] Medical History Lymphadenopathy Missed menses History of asthma Surgical History Hx of shoulder surgery Family History Maternal Grandmother History of breast cancer Ovarian cancer Father Diabetes mellitus Hypertension Mother Diabetes mellitus Substance use disorder Mental health disorder Maternal Uncle Substance use disorder Mental health disorder Social History Housing: House Alcohol intake: current Alcohol intake frequency: holidays/special occasions only Patient Tobacco Use Status: Never used Tobacco e-Cigarette/Vaping Use: Never Used Second Hand Smoke Exposure: Yes Substance Use Type: Marijuana service: No Current occupational status: employed Current occupation: [employer] Current occupational exposures/hazards: No Sexual orientation: Straight/Heterosexual Gender identity: Female Cognitive needs: No Hearing needs: No Vision needs: No Female Reproductive History Menstrual Age of Menarche: 11 Review of Systems Const All systems reviewed & are unremarkable except as noted in HPI and below Physical Exam Vital Signs: Last Vital Signs Pulse 81 04/21/25 15:44 BP 120/80 04/21/25 15:44 Pulse Ox 99 04/21/25 15:44 Oxygen Delivery Method Room Air 04/21/25 15:44 Assessment & Plan Assessment & Plan (1) MCL sprain of left knee: Code(s): S83.412A - Sprain of medial collateral ligament of left knee, initial encounter Qualifiers: Encounter type: subsequent encounter Qualified Code(s): S83.412D - Sprain of medial collateral ligament of left knee, subsequent encounter Plan: A more appropriately sized knee brace was provided to the patient to stabilize the left knee and reduce further strain. Given the observed laxity and ongoing pain, it is suspected that the patient has sustained an MCL sprain, with potential involvement of the LCL. I called orthopedics and was able to move her appt from June to June 15 10:45am for further assessment. The patient will initiate Aleve for inflammation every 12 hours and will utilize rest, ice, compression, and elevation therapy, with an emphasis on cold application to manage swelling. For the shoulder muscle spasm, I will prescribe a muscle relaxant and recommend heat therapy alongside self-myofascial release techniques. Patient was informed and verbally consented to the use of an ambient scribe for clinic note documentation during this visit. (2) Cervical paraspinal muscle spasm: Code(s): M62.838 - Other muscle spasm Plan: as above Medications: New cyclobenzaprine 5 mg PO Q8H PRN 20 tabs 0RF Muscle Spasm Coding Level of Care Code Est Pt Level 4 (23384) Diagnoses Sprain of medial collateral ligament of left knee, subsequent encounter S83.412D Encounter type: subsequent encounter Cervical paraspinal muscle spasm M62.838
[2025-04-21 15:44] VITALS: BP 120/80; PULSE 81; O2SAT 99
--- OUTSIDE RECORDS SUMMARY | 2025-04-21 16:59 | XMS_ITS | Encounter Summary ---
Author Organization [facility] Address [address] [place] [address] Phone Care Team Providers Care Nursing Care Partner Name Role Phone Filomena Means DO Primary Care Provider [phone] Encounter Details Date Type Department Care Team (Late st Contact Info) Description 03/23/2014 Documentation [facility] Family Medicine [address] [place] [address] Family Medicine, Physician [address], [place] [id number] Social History Tobacco Use Types Packs/Day Years [...] on filedocumented in this encounter Care Teams Nursing Care Partner Relationship Specialty Start Date End Date Filomena Means DO [address] [place] [address] PCP - General 06/29/17 03/15/23 documented as of this encounter
== END 2025-04-21 16:13 | disposition home or self-care (01) ==
PROVIDERS: PCP Nurse Practitioner Family; Visit Provider Physician Assistant
DX: S83.412D Sprain of medial collateral ligament of left knee, subsequent encounter (principal); M62.838 Other muscle spasm

== ENCOUNTER → 2025-04-21 15:38 | Outpatient (BNVA) | payer OTHER, SELFPAY | PROVIDERS: PCP Nurse Practitioner Family; Visit Provider Physician Assistant | DX: S83.412D Sprain of medial collateral ligament of left knee, subsequent encounter (principal); M62.838 Other muscle spasm | CPT/HCPCS: 99212 ==

== ENCOUNTER 2025-06-15 09:04 | Outpatient (REF) | payer OTHER, SELFPAY ==
--- OUTSIDE RECORDS SUMMARY | 2025-06-16 09:29 | XMS_ITS | Clinical Summary ---
Author Organization [facility] ity Address [address] [place] [address] Care Team Providers Care Automatic Door Mechanic Name Role Phone Unavailable Primary Care Provider [...] Cervical Cancer Screening: P ap Smear 2018 HIV Screening 10/22/2022 Hepatitis C Screening 10/22/2022 Social Influencers of Health Screening 10/22/2022 COVID-19 Vaccine ( - 2023-2 5 season) 2024 Depression Screening 11/19/2024 Influenza Vaccine (#1) 2025 HIB Vaccines Aged Out No longer [...] 5 Years) and At-Risk Patients (6 to 49 Years) Aged Out No longer eligible b ased on patient's age to complete this topic RSV Immunization Patients Un kimi 20 months Aged Out No longer eligible b ased on patient's age to complete this topic Varicella Vaccines Aged Out No longer eligible based on patient's age to complete this topic
--- OUTSIDE RECORDS SUMMARY | 2025-06-16 09:29 | XMS_ITS | Encounter Summary ---
Author Organization [facility] Address [address] [place] [address] Phone Care Team Providers Care Honest John Rocket Crew Member Name Role Phone Unknown, Unknown Primary Care Provider Filomena Radford DO Primary Care Provider [phone] Encounter Details Date Type Department Care Team (Late st Contact Info) Description 02/08/2018 Procedure Pass [facility] Endoscopy Admitting Dept Virtual Department [address] [place] [address] Social History Tobacco Use Types Packs/Day Years Used Date Smoking Tobacco: Never Smokeless Tobacco: Never Alcohol Use Standard Drinks/Week Comments Yes 0 (1 standard drink = 0.6 oz pur e alcohol) rare Comments Unknown Sex and Gender Information Value Date Recorded Sex Assigned at Not on file Legal Sex Female 8:24 AM EST Gender Identity Not on file Sexual Orientation Not on file documented as of this encounter Plan of Treatment Not on file documented as of this encounter Visit Diagnoses Not on filedocumented in this encounter Care Teams Honest John Rocket Crew Member Relationship Specialty Start Date End Date Unknown, Unknown, PCP - General 01/29/18 04/10/18 Filomena Means DO [address] [place] [address] PCP - General Pediatrics 04/11/18 documented as of this encounter Additional Source Comments The information contained in this document represents components of the legal health record. It is not the complete legal health record.[facility]
== END 2025-06-15 09:05 | disposition home or self-care (01) ==
LOC: HO.HOSX 09:04
PROVIDERS: Visit Provider Physician Assistant
DX: Z13.89 Encounter for screening for other disorder (principal)

== ENCOUNTER 2025-06-30 11:27 | Outpatient (AMB) | payer OTHER, SELFPAY ==
--- OUTSIDE RECORDS SUMMARY | 2025-06-30 12:33 | XMS_ITS | Encounter Summary ---
Author Organization [facility] Address [address] [place] [address] Phone Care Team Providers Care Quill Worker Name Role Phone Filomena Means DO Primary Care Provider [phone] Encounter Details Date Type Department Care Team (Late st Contact Info) Description 03/23/2014 Documentation [facility] [place] [address] [place] [address] Family Medicine, Physician [address] [id number] Social History Tobacco Use Types Packs/Day Years [...] on filedocumented in this encounter Care Teams Quill Worker Relationship Specialty Start Date End Date Filomena Means DO [address] [place] [address] PCP - General 06/29/17 03/15/23 documented as of this encounter
--- OUTSIDE RECORDS SUMMARY | 2025-06-30 12:33 | XMS_ITS | Clinical Summary ---
Author Organization [facility] Address [address] [facility] [address] [place] [address] Phone Care Team Providers Care Level Glass Forming Machine Operator Name Role Phone MiguelangelKalyncatrachito JACKSON Primary Care Provider [phone] Allergies No known active allergies Medications calcium carbonate-vitam in D3 1,250 mg (500 mg elemental)-200 units per tablet CALCIUM 500-VIT D3; 500 MG CALCIUM (1,250 MG)-200 UNIT{tbl}; 09/24/2015; Active Active omeprazole (PRILOSEC) 20 MG capsule Take 2 capsules daily for 4w, then 1 capsule daily; 12/12/2017 Active albuterol (PROAIR HFA) 90 mcg/actuation inhaler Inhale 2 puffs into the lungs. 04/01/2018 Active polyethylene glycol (MIRALAX) 17 gram/dose powder Take 17 g by mouth. 12/12/2017 Active Active Problems No known active problems Social History Tobacco Use Types Packs/Day Years Used Date Smoking Tobacco: Never Smokeless Tobacco: Never Alcohol Use Standard Drinks/Week Comments Yes 0 (1 standard drink = 0.6 oz pur e alcohol) rare Education Answer Date Recorded Are you interested in more education? Not on ailyn e 03/16/2023 Are you concerned about learning? Not on file 03/16/2023 No 03/16/2023 No 03/16/2023 Digital Access Answer Date Recorded No 04/14/2023 No 04/14/2023 No 04/14/2023 Reliable internet access at home? Not on file 04/14/2023 Device with a working camera? Not on file Comments Unknown Sex and Gender Information Value Date Recorded Sex Assigned at Not on file Legal Sex Female 8:24 AM EST Gender Identity Not on file Sexual Orientation Not on file Last Filed Vital Signs Vital Sign Reading Time Taken Comments Blood Pressure 104/66 04/11/2018 9:36 AM EDT Pulse 78 04/11/2018 8:24 AM EDT Temperature 35.9 C (96.6 F) 04/11/2018 9:33 AM EDT Respiratory Rate 16 04/11/2018 8:24 AM EDT Oxygen Saturation 97% 04/11/2018 9:36 AM EDT Inhaled Oxygen Concentration - - Weight 68 kg (150 lb) 04/11/2018 8:24 AM EDT Height 167.6 cm (5' 6 ) 04/11/2018 8:24 AM EDT Body Mass Index 24.21 04/11/2018 8:24 AM EDT Plan of Treatment Health Maintenance Due Date Last Done Comments DEPRESSION SCREENING 2009 HEPATITIS C SCREENING 2015 HIV ONE-TIME SCREENING (18-65 YEARS) 2015 PAP SMEAR 2018 SMOKING STATUS SCREENING (Once After 26 Yrs) 2023 COVID-19 VACCINE ( season) 2024 03/29/2021 Adult Td,Tdap Booster 07/17/2028 07/17/2018, 008 HIB VACCINES Completed 04/29/1998, 07/20, 1997, Additional history exists MENINGOCOCCAL VACCINES (ACWY) Completed 07/29/2014, 07/29/2008 HEPATITIS A VACCINES Completed 09/24/2015, 07/29/20 14 MENINGOCOCCAL VACCINES (B) Aged Out N o longer eligible based on patient's age to complete this topic PNEUMOCOCCAL VACCINES (0-49 years) Aged Out No longer eligible based on patient's age to complete this topic Medical Devices Not on file [facility] [place] [address] PPO EPO Member Subscriber Plan / Payer (Ef fective 2017-Present) Name:Isabel Carr Relation to Subscriber:Self Name:Isabel Carr Payer ID:[id number] ([facility]) Type:PPO Address: [place] [address] [place] [address] PPO EPO Member Subscriber Plan / Payer (Ef fective 2017-Present) Name:Isabel Carr Relation to Subscriber:Self Name:Isabel Carr Payer ID:[id number] ([facility] Type:PPO Address: [place] [address] [place] [address] [place] [address] [place] [address] [address] [place] [address] [place] [place] [address] PPO EPO [facility] PPO EPO [facility] PPO EPO Care Teams Level Glass Forming Machine Operator Relationship Specialty Start Date End Date Filomena Means DO [address] [place] [address] PCP - General Pediatrics 04/11/18 Additional Source Comments The information contained in this document represents components of the legal health record. It is not the complete legal health record.[facility]
--- OUTSIDE RECORDS SUMMARY | 2025-06-30 12:33 | XMS_ITS | Clinical Summary ---
Author Organization [facility] ity Address [address] [place] [address] Care Team Providers Care Credit Compliance Officer Name Role Phone Unavailable Primary Care Provider [...]
[2025-06-30 12:38] VITALS: BP 106/74; PULSE 84; TEMP 36.9; O2SAT 98; BMI 31.5
--- NOTE | 2025-06-30 12:38 | MHC.OFFWIV ---
Intake Vital Signs 06/30/25 12:38 Height 5 ft 6 in Weight 195 lb 4 oz BMI 31.5 BP 106/74 Blood Pressure Location Lt brachial Position Sitting Pulse 84 Pulse Source Pulse Oximeter Temp 98.4 F Temp Source Oral Pulse Oximetry (%) 98 Oxygen Delivery Method Room Air Intake Visit Reasons: EP persistent abdominal pain Patient Tobacco Use Status: Never used Tobacco Credit Card Analyst Required: No Is last menstrual period known: Yes Last menstrual period: 06/07/25 Post menopausal: No Patient : No Allergies No Known Allergies Allergy (Verified 06/30/25 12:43) Do you need a note to return to daycare/school/sports/work: No HPI HPI Comments History of Present Illness Details History - The patient is a 30-year-old female presenting with left lower abdominal pain. - The discomfort and pain in the lower left abdomen have been present for almost two months, pain is not worse/better with her menstrual cycle. LMP June 07-, always irregular. - The pain does not worsen with eating and is not associated with nausea, vomiting, or diarrhea or fevers. 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 - She has a history of ovarian cysts, with a small cyst noted on the left ovary during a pelvic ultrasound in March. 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 - There is a family history of lupus, and the patient has been advised to consult a shipfitter apprentice for further evaluation. - she has had multiple colonoscopies which were all normal, she tells me they were to rule out celiac disease when she was younger. Physical Exam General: Cooperative, healthy appearing, comfortable, no acute distress and well developed Orientation: Patient oriented x3 Limitations: No limitations Head: Normal to inspection Ears: Hearing grossly normal bilaterally Nose: Normal External nose present Face and sinus: Normal facial exam Mouth: normal, moist oral mucosa Eyes: Appearance normal, both eyes and all related structures Neck: Normal visual inspection and Yes full ROM Respiratory: Normal respiratory effort and able to speak in complete sentences. GI: soft, negative Chau's, negative McBurney's, TTP LLQ Skin: no rashes or lesions noted Neuro: Patient oriented x3 Extremities: moving all extremities normally [facility] Medical History Lymphadenopathy Missed menses History of asthma Surgical History Hx of shoulder surgery Family History Maternal Grandmother History of breast cancer Ovarian cancer Father Diabetes mellitus Hypertension Mother Diabetes mellitus Substance use disorder Mental health disorder Maternal Uncle Substance use disorder Mental health disorder Social History Housing: House Alcohol intake: current Alcohol intake frequency: holidays/special occasions only Patient Tobacco Use Status: Never used Tobacco e-Cigarette/Vaping Use: Never Used Second Hand Smoke Exposure: Yes Substance Use Type: Marijuana Patient : No service: No Current occupational status: employed Current occupation: [employer] Current occupational exposures/hazards: No Sexual orientation: Straight/Heterosexual Gender identity: Female Cognitive needs: No Hearing needs: No Vision needs: No Female Reproductive History Menstrual Age of Menarche: 11 Date of last menstrual period: 06/07/25 Review of Systems Const All systems reviewed & are unremarkable except as noted in HPI and below Physical Exam Vital Signs: Last Vital Signs Temp 98.4 F 06/30/25 12:38 Pulse 84 06/30/25 12:38 BP 106/74 06/30/25 12:38 Pulse Ox 98 06/30/25 12:38 Oxygen Delivery Method Room Air 06/30/25 12:38 BMI result Body Mass Index 31.5 Assessment & Plan Assessment & Plan (1) LLQ abdominal pain: Code(s): R10.32 - Left lower quadrant pain Plan: Plan Patient was informed and verbally consented to the use of an ambient scribe for clinic note documentation during this visit - Consideration of a growing ovarian cyst as a potential cause; d/w her PCP, will repeat ultrasound. - Advise patient to seek emergency care if symptoms worsen significantly. - Discuss with PCP at next visit re: Referral to shipfitter apprentice for evaluation and potential screening for lupus. (2) History of ovarian cyst: Code(s): Z87.42 - Personal history of other diseases of the female genital tract Plan: as above Orders: Orders US pelvic limited Today R10.32 - Left lower quadrant pain, Z87.42 - Personal history of other diseases of the female genital tract Coding Level of Care Code Est Pt Level 4 (69695) Diagnoses LLQ abdominal pain R10.32 History of ovarian cyst Z87.42
== END 2025-06-30 13:19 | disposition home or self-care (01) ==
PROVIDERS: Visit Provider Physician Assistant
DX: R10.32 Left lower quadrant pain (principal); Z87.42 Personal history of other diseases of the female genital tract

== ENCOUNTER → 2025-06-30 11:27 | Outpatient (BNVA) | payer OTHER, SELFPAY | PROVIDERS: Visit Provider Physician Assistant | DX: R10.32 Left lower quadrant pain (principal); Z87.42 Personal history of other diseases of the female genital tract | CPT/HCPCS: 99212 ==

== ENCOUNTER 2025-07-28 14:28 | Outpatient (REF) | payer OTHER, SELFPAY ==
--- NOTE | ~2025-07-28 | US_ITS ---
EXAMINATION: US PELVIS CLINICAL INFORMATION: R10.32 - Left lower quadrant pain COMPARISON: None available. TECHNIQUE: Ultrasound of the pelvis is performed using transabdominal transducers along with Doppler. Transvaginal imaging is performed due to inadequate visualization transabdominally. FINDINGS: Uterus: The uterus is anteverted and measures 9.5 x 4.2 x 4.7 cm. The double wall endometrial thickness is 6 mm. The uterus is smooth in contour and has normal myometrial echogenicity. No visible fibroid. Adnexa: Both ovaries are visualized. There is normal color flow to the adnexa. There is no ovarian torsion. There is no pelvic ascites or fluid collection. Right ovary measures 3.0 x 3.0 x 2.0 cm. There is a 2 cm hypoechoic cyst, likely hemorrhagic and requiring no further follow-up. Left ovary measures 1.9 x 1.4 x 2.3 cm. US/US pelvic and transvaginal IMPRESSION: Unremarkable pelvic ultrasound. Electronically signed by: Leo Person MD 07/28/2025 03:24 PM EDT
--- OUTSIDE RECORDS SUMMARY | 2025-07-28 17:03 | XMS_ITS | Clinical Summary ---
Author Organization [facility] Address [address] [facility] [address] [place] [address] Phone Care Team Providers Care Switch Operators Supervisor Name Role Phone MiguelangelKalyncatrachito JACKSON Primary Care Provider Allergies No known active allergies Medications calcium [...] STATUS SCREENING (Once After 26 Yrs) 2023 INFLUENZA VACCINE (#1) 2025 8, 07/27/2017, 09/24/2015, Additional history exists COVID-19 VACCINE (2024- season) 2025 03/29/2021 Adult Td,Tdap Booster 07/17/2028 07/17/2018, 008 [...] topic Medical Devices Not on file Insurance [facility] [place] [address] [place] [address] [address] [place] [address] PPO EPO [facility] [place] [address] [place] [address] [place] [address] [place] [address] [place] [address] [place] [address] [place] [address] PPO EPO [facility] PPO EPO Care Teams Switch Operators Supervisor Relationship Specialty Start Date End Date Filomena Means DO [address] [place] [address] PCP - General Pediatrics 04/11/18 Additional Source Comments The information contained in this document represents components of the legal health record. It is not the complete legal health record.[facility]
--- OUTSIDE RECORDS SUMMARY | 2025-07-28 17:03 | XMS_ITS | Clinical Summary ---
Author Organization [facility] ity Address [address] [place] [address] Care Team Providers Care Ivory Carver Name Role Phone Unavailable Primary Care Provider [...] 10/22/2022 Social Influencers of Health Screening 10/22/2022 Depression Screening 11/19/2024 COVID-19 Vaccine ( - 2023-2 5 season) 2025 Influenza Vaccine (#1) 2025 HIB Vaccines Aged [...]
--- OUTSIDE RECORDS SUMMARY | 2025-07-28 17:03 | XMS_ITS | Encounter Summary ---
Author Organization [facility] Address [address] [place] [address] Phone Care Team Providers Care Nanotechnology Engineering Technician Name Role Phone Unknown, Unknown Primary Care Provider Filomena Radford DO Primary Care Provider [phone] Encounter Details Date Type Department Care Team (Late st Contact Info) Description 02/08/2018 Procedure Pass [facility] Endoscopy Admitting Dept Virtual Department [address] [place] [address] Social History Tobacco Use Types Packs/Day Years [...] on filedocumented in this encounter Care Teams Nanotechnology Engineering Technician Relationship Specialty Start Date End Date Unknown, Unknown, PCP - General 01/29/18 04/10/18 Filomena Means DO [address] [place] [address] PCP - General Pediatrics 04/11/18 documented as of this encounter Additional Source Comments The information contained in this document represents components of the legal health record. It is not the complete legal health record.[facility]
--- OUTSIDE RECORDS SUMMARY | 2025-07-28 17:03 | XMS_ITS | Encounter Summary ---
Author Organization [facility] Address [address] [place] [address] Phone Care Team Providers Care Robotic Machine Operator Name Role Phone Filomena Means DO Primary Care Provider [phone] Encounter Details Date Type Department Care Team (Late st Contact Info) Description 04/11/2018 Procedure Pass [facility] Endoscopy Admitting Dept Virtual Department [address] [place] [address] Social History Tobacco Use Types Packs/Day Years [...] on filedocumented in this encounter Care Teams Robotic Machine Operator Relationship Specialty Start Date End Date Filomena Means DO [address] [place] [address] PCP - General Pediatrics 04/11/18 documented as of this encounter Additional Source Comments The information contained in this document represents components of the legal health record. It is not the complete legal health record.[facility]
== END 2025-07-28 14:29 | disposition home or self-care (01) ==
LOC: HO.US 14:28
PROVIDERS: Visit Provider Physician Assistant
DX: R10.32 Left lower quadrant pain (principal); Z87.42 Personal history of other diseases of the female genital tract
CPT/HCPCS: 76830; 76856

== ENCOUNTER → 2025-07-28 14:30 | Outpatient (BNV) | payer OTHER, SELFPAY | PROVIDERS: Visit Provider Radiology Diagnostic Radiology | DX: N83.201 Unspecified ovarian cyst, right side (principal); R10.32 Left lower quadrant pain | CPT/HCPCS: 76830; 76856 ==

== ENCOUNTER 2025-08-24 15:58 | Outpatient (AMB) | payer OTHER, SELFPAY ==
[2025-08-24 16:13] VITALS: BP 104/62; PULSE 70; TEMP 37.3; O2SAT 100; BMI 30.5
--- NOTE | 2025-08-24 16:13 | A.OFFPC_ITS ---
Vital Signs 08/24/25 16:13 Height 5 ft 6 in Weight 189 lb BMI 30.5 BP 104/62 Blood Pressure Location Lt brachial Position Sitting Pulse 70 Pulse Source Pulse Oximeter Temp 99.1 F Temp Source Oral Pulse Oximetry (%) 100 Oxygen Delivery Method Room Air Intake Visit Reasons: Annual PE Shredded Filler Cutter Operator Required: No Accompanied by: Self / Same As Patient Allergies No Known Allergies Allergy (Verified 08/24/25 16:19) Medication List - Last Reconciled 08/24/25 by SHRUTI Galdamez cyclobenzaprine 5 mg PO Q8H PRN Tobacco use date assessed: 08/24/25 Dental Screening Dental Screen Date: 08/24/25 Did you have a dental visit in the last 12 months?: Yes Did you have a dental problem in the last 6 months where you did not have access to dental care?: No Was dental information given to patient?: Patient has dentist HPI Annual PE HPI Details History of Present Illness The patient is a 30-year-old female presenting for a physical examination. [facility] has a rn gyn for paps Social History Review of Systems - Cardiovascular: Denies chest pain. - Respiratory: Denies dyspnea. - Gastrointestinal: Denies abdominal sonya n, hematochezia, constipation, or diarrhea. - Psychiatric: Denies suicidal ideation or homicidal ideation. Physical Exam General: Cooperative, healthy appearing, comfortable, no acute distress and well developed Orientation: Patient oriented x3 Limitations: No limitations Head: Normal to inspection Ears: Hearing grossly normal bilaterally Nose: Normal external nose present Face and sinus: Normal facial exam Eyes: Appearance normal, both eyes and all related structures Neck: Normal visual inspection and Yes full ROM Respiratory: Normal respiratory effort and able to speak in complete sentences. Clear to auscultation bilaterally Cardiovascular: Regular rate and rhythm. Normal S1 and S2 GI: Normal to inspection. Soft to palpation and nontender : testicles without masses/lesions and no hernias appreciated Skin: No rashes or lesions noted Neuro: Patient oriented x3 Extremities: Normal to inspection Results Plan fasting labs ordered [facility] Medical History Lymphadenopathy Missed menses History of asthma Surgical History Hx of shoulder surgery Family History Maternal Grandmother History of breast cancer Ovarian cancer Father Diabetes mellitus Hypertension Mother Diabetes mellitus Substance use disorder Mental health disorder Maternal Uncle Substance use disorder Mental health disorder Social History Housing: House Alcohol intake: current Alcohol intake frequency: holidays/special occasions only Patient Tobacco Use Status: Never used Tobacco e-Cigarette/Vaping Use: Never Used Second Hand Smoke Exposure: Yes Substance Use Type: Marijuana service: No Current occupational status: employed Current occupation: [employer] Current occupational exposures/hazards: No Sexual orientation: Straight/Heterosexual Gender identity: Female Cognitive needs: No Hearing needs: No Vision needs: No Female Reproductive History Menstrual Age of Menarche: 11 Questionnaire PHQ-9 Over the last 2 weeks, how often have you been bothered by any of the following problems? 1. Little interest or pleasure in doing things: several days 2. Feeling down, depressed, or hopeless: several days 3. Trouble falling or staying asleep, or sleeping too much: several days 4. Feeling tired or having little energy: several days 5. Poor appetite or overeating: more than half the days 6. Feeling bad about yourself - or that you are a failure or have let yourself or your family down: several days 7. Trouble concentrating on things, such as reading the newspaper or watching television: more than half the days 8. Moving or speaking so slowly that other people could have noticed. Or the opposite - being so fidgety or restless that you have been moving around a lot more than usual: several days 9. Thoughts that you would be better off or of hurting yourself in some way: not at all Total score: 10 Depression Screening Interpretation: Positive (denies any si or hi, declines therapy/meds) Depression Screening Follow-up: Existing condition Depression Screening Done: Yes 25650 - PHQ-9 Billing: Yes Source: Developed by Drs. Odell Adams, Charlene Conti, Milton Guerrero and colleagues, with an educational kaiser from [employer]. Thrive Questionnaire Date Thrive assessed: 07/19/22 I am a: Patient What is your living situation today?: I have a steady place to live Within the past 12 months, did the food you bought not last and you didn't have the money to get more?: I choose not to answer this question Within the past 12 months, did you worry whether your food would run out before you got money to buy more?: I choose not to answer this question Do you have trouble paying for medicines?: No Do you have trouble getting transportation to medical appointments?: I choose not to answer this question Do you have trouble paying your heating and electricity bill?: I choose not to answer this question Do you have trouble taking care of your child, family member or friend?: No Do you have trouble with day-to-day activities such as bathing, preparing meals, shopping, managing finances, etc.?: I choose not to answer this question Are you currently unemployed and looking for a job?: No Are you interested in more education?: No Please select the resources that you would like help with: None Currently or been in a relationship where the following occur: I choose not to answer THRIVE Score: 0 AUDIT C Alcohol Use Questionnaire (AUDIT-C) 1. How often do you have a drink containing alcohol?: Monthly or less 2. How many drinks containing alcohol do you have on a typical day when you are drinking?: 1 or 2 3. How often do you have six or more drinks on one occasion?: Never Total Score: 1 SIMON-7 AMB Questionnaire SIMON-7 Date SIMON - 7 assessed: 08/24/25 Feeling nervous, anxious, or on edge: 2 = More than half the days Not being able to stop or control worryin = Not at all Worrying too much about different things: 0 = Not at all Trouble relaxin = Several days Being so restless that it is hard to sit still: 1 = Several days Becoming easily annoyed or irritable: 1 = Several days Feeling afraid as if something awful might happen: 0 = Not at all Total SIMON-7 score (0-4 normal; 5-9 mild; 10-14 moderate; 15-21 severe): 5 Source: Developed by Drs. Odell Adams, Charlene Conti, Milton Guerrero and colleagues, with an educational kaiser from [employer]. SIMON-7 Assessment Billing SIMON-7 Assessment Tool: SIMON-7 Assessment 03119 Physical exam (Primary Care) Vital Signs: Last Vital Signs Temp 99.1 F 08/24/25 16:13 Pulse 70 08/24/25 16:13 BP 104/62 08/24/25 16:13 Pulse Ox 100 08/24/25 16:13 Oxygen Delivery Method Room Air 08/24/25 16:13 BMI result Body Mass Index 30.5 Tobacco/Smoking Status: Tobacco use Status Tobacco use date assessed 08/24/25 08/24/25 16:19 Patient Tobacco Use Status Never used Tobacco 08/24/25 16:19 e-Cigarette/Vaping Use Never Used 08/24/25 16:19 PHQ-9: PHQ-9 Score PHQ-9: Total score 10 08/24/25 16:19 Depression Screening Interpretation: Positive (denies any si or hi, declines therapy/meds) Depression Screening Follow-up: Existing condition Thrive Assessment: Date of Thrive Assessment Date Thrive assessed 07/19/22 08/24/25 16:19 Currently or been in a relationship where the following occur: I choose not to answer Coding Level of Care Code Est Pt Prev Care 18-39y(35766) Diagnoses Physical exam Z00.00 Additional Codes SIMON-7 Assessment Billing - SIMON-7 Assessment Tool: SIMON-7 Assessment 62296 ([id number]) PHQ-9 - 04469 - PHQ-9 Billing: Yes ([id number]) Assessment & Plan Assessment & Plan (1) Physical exam: Code(s): Z00.00 - Encounter for general adult medical examination without abnormal findings Category: Medical Plan . Orders: Orders Complete Blood Count Auto Diff Today Z00.00 - Encounter for general adult medical examination without abnormal findings TSH reflex Free T4 Today Z00.00 - Encounter for general adult medical examination without abnormal findings Comprehensive Carter. Panel Fast Today Z00.00 - Encounter for general adult medical examination without abnormal findings UA CC w/rflx Micro + Cult Today Z00.00 - Encounter for general adult medical examination without abnormal findings Lipid Panel Today Z00.00 - Encounter for general adult medical examination without abnormal findings
--- OUTSIDE RECORDS SUMMARY | 2025-08-24 18:17 | XMS_ITS | Encounter Summary ---
Author Organization [facility] Address [address] [place] [address] Phone Care Team Providers Care Freight Router Name Role Phone Filomena Means DO Primary Care Provider [phone] Encounter Details Date Type Department Care Team (Late st Contact Info) Description 08/26/2014 Documentation [facility] [place] [address] [place] [address] Family Medicine, Physician [address] [place], [place] [id number] Social History Tobacco Use Types Packs/Day Years [...] on filedocumented in this encounter Care Teams Freight Router Relationship Specialty Start Date End Date Filomena Means DO [address] [place] [address] PCP - General 06/29/17 03/15/23 documented as of this encounter
--- OUTSIDE RECORDS SUMMARY | 2025-08-24 18:17 | XMS_ITS | Encounter Summary ---
Author Organization [facility] Address [address] [place] [address] Phone Care Team Providers Care Glass Pulverizer Equipment Operator Name Role Phone Filomena Means DO Primary Care Provider [phone] Encounter Details Date Type Department Care Team (Late st Contact Info) Description 04/17/2014 Documentation [facility] [place] Family Medicine [address] [place] [address] Family Medicine, Physician [address] [place] [phone] Social History Tobacco Use Types Packs/Day Years [...] on filedocumented in this encounter Care Teams Glass Pulverizer Equipment Operator Relationship Specialty Start Date End Date Filomena Means DO [address] [place] [address] PCP - General 06/29/17 03/15/23 documented as of this encounter
--- OUTSIDE RECORDS SUMMARY | 2025-08-24 18:17 | XMS_ITS | Encounter Summary ---
Author Organization [facility] Address [address] [place] [address] Phone Care Team Providers Care China Decorator Name Role Phone Filomena Means DO Primary Care Provider [phone] Encounter Details Date Type Department Care Team (Late st Contact Info) Description 03/23/2014 Documentation [facility] [place] Medicine [address] [place] [address] Family Medicine, Physician [address] [place], [place] [id number] Social History Tobacco Use Types Packs/Day Years [...] on filedocumented in this encounter Care Teams China Decorator Relationship Specialty Start Date End Date Filomena Means DO [address] [place] [address] PCP - General 06/29/17 03/15/23 documented as of this encounter
--- OUTSIDE RECORDS SUMMARY | 2025-08-24 18:18 | XMS_ITS | Encounter Summary ---
Author Organization [facility] Address [address] [place] [address] Phone Care Team Providers Care Tie Layer Name Role Phone Filomena Means DO Primary Care Provider [phone] Encounter Details Date Type Department Care Team (Late st Contact Info) Description 03/09/2017 Documentation [facility] [place] Family Medicine [address] [place] [address] Family Medicine, Physician [facility] [place], [place] [phone] Social History Tobacco Use Types Packs/Day Years [...] on filedocumented in this encounter Care Teams Tie Layer Relationship Specialty Start Date End Date Filomena Means DO [address] [place] [address] PCP - General 06/29/17 03/15/23 documented as of this encounter
--- OUTSIDE RECORDS SUMMARY | 2025-08-24 18:18 | XMS_ITS | Encounter Summary ---
Author Organization [facility] Address [address] [place] [address] Phone Care Team Providers Care Dry Mill Operator Name Role Phone Filomena Means DO Primary Care Provider [phone] Reason for Visit * Reason Comments Med Refill Encounter Details Date Type Department Care Team ([facility] Contact Info) Description 07/17/2018 Refill [facility] [place] [address] [place] [address] Filomena Means DO [address] [place] [address] Encounter for BCP ( control pills) initial [...] contraceptives documented in this encounter Care Teams Dry Mill Operator Relationship Specialty Start Date End Date Filomena Means DO [address] [facility] [place] [address] PCP - General 06/29/17 03/15/23 documented as of this encounter
--- OUTSIDE RECORDS SUMMARY | 2025-08-24 18:18 | XMS_ITS | Encounter Summary ---
Author Organization [facility] Address [address] [place] [address] Phone Care Team Providers Care Veterinary Dentist Name Role Phone Filomena Means DO Primary Care Provider [phone] Encounter Details Date Type Department Care Team (Late st Contact Info) Description 02/26/2015 Documentation [facility] [place] Family Medicine [address] [place] [address] Family Medicine, Physician [facility] [place], [place] [phone] Social History Tobacco Use Types Packs/Day Years [...] on filedocumented in this encounter Care Teams Veterinary Dentist Relationship Specialty Start Date End Date Filomena Means DO [address] [place] [address] PCP - General 06/29/17 03/15/23 documented as of this encounter
--- OUTSIDE RECORDS SUMMARY | 2025-08-24 18:18 | XMS_ITS | Clinical Summary ---
Author Organization [facility] Address [address] [place] [address] Phone Care Team Providers Care Brick Paver Name Role Phone MiguelangelKalyncatrachito JACKSON Primary Care Provider [phone] Allergies No known active allergies Medications calcium [...] topic Medical Devices Not on file Insurance [facility] [place] [address] [place] [address] [address] [place] [address] PPO EPO [facility] [place] [address] [place] [address] [place] [address] [place] [address] [place] [address] [place] [address] PPO EPO [facility] PPO EPO Care Teams Brick Paver Relationship Specialty Start Date End Date Filomena Means DO [address] [place] [address] PCP - General Pediatrics 04/11/18 Additional Source Comments The information contained in this document represents components of the legal health record. It is not the complete legal health record.[facility]
--- OUTSIDE RECORDS SUMMARY | 2025-08-24 18:18 | XMS_ITS | Encounter Summary ---
Author Organization [facility] Address [address] [place] [address] Phone Care Team Providers Care Clinical Neuropsychologist Name Role Phone Unknown, Unknown Primary Care Provider Filomena Radford DO Primary Care Provider [phone] Encounter Details Date Type Department Care Team (Late st Contact Info) Description 02/08/2018 Procedure Pass [facility] Endoscopy Admitting Dept Virtual Department [address] [place] [address] Social History Tobacco Use Types Packs/Day Years [...] on filedocumented in this encounter Care Teams Clinical Neuropsychologist Relationship Specialty Start Date End Date Unknown, Unknown, PCP - General 01/29/18 04/10/18 Filomena Means DO [address] [place] [address] PCP - General Pediatrics 04/11/18 documented as of this encounter Additional Source Comments The information contained in this document represents components of the legal health record. It is not the complete legal health record.[facility]
--- OUTSIDE RECORDS SUMMARY | 2025-08-24 18:18 | XMS_ITS | Encounter Summary ---
Author Organization [facility] Address [address] [place] [address] Phone Care Team Providers Care Grain I Farmworker Name Role Phone Filomena Means DO Primary Care Provider Encounter Details Date Type Department Care Team (Late st Contact Info) Description 12/22/2014 Documentation [facility] [place] [address] [place] [address] Family Medicine, Physician [facility] [place], [place] [phone] Social History Tobacco Use Types Packs/Day Years [...] on filedocumented in this encounter Care Teams Grain I Farmworker Relationship Specialty Start Date End Date Filomena Means DO [address] [place] [address] PCP - General 06/29/17 03/15/23 documented as of this encounter
--- OUTSIDE RECORDS SUMMARY | 2025-08-24 18:18 | XMS_ITS | Encounter Summary ---
Author Organization [facility] Address [address] [place] [address] Phone Care Team Providers Care Cement Cutter Name Role Phone Filomena Means DO Primary Care Provider [phone] Encounter Details Date Type Department Care Team (Late st Contact Info) Description 04/11/2018 Procedure Pass [facility] Endoscopy Admitting Dept Virtual Department [address] [place] [address] Social History Tobacco Use Types Packs/Day Years [...] on filedocumented in this encounter Care Teams Cement Cutter Relationship Specialty Start Date End Date Filomena Means DO [address] [place] [address] PCP - General Pediatrics 04/11/18 documented as of this encounter Additional Source Comments The information contained in this document represents components of the legal health record. It is not the complete legal health record.[facility]
--- OUTSIDE RECORDS SUMMARY | 2025-08-24 18:18 | XMS_ITS | Encounter Summary ---
Author Organization [facility] Address [address] [place] [address] Phone Care Team Providers Care Combustion Analyst Name Role Phone Filomena Means DO Primary Care Provider Reason for Visit * Reason Comments Med Refill Encounter Details Date Type Department Care Team ([facility] Contact Info) Description 09/19/2018 Refill [facility] [address] [place] [address] Filomena Means DO [address] [place] [address] Encounter for BCP ( control pills) initial [...] contraceptives documented in this encounter Care Teams Combustion Analyst Relationship Specialty Start Date End Date Filomena Means DO [address] [place] [address] PCP - General 06/29/17 03/15/23 documented as of this encounter
--- OUTSIDE RECORDS SUMMARY | 2025-08-24 18:18 | XMS_ITS | Clinical Summary ---
Author Organization [facility] Address [address] [place] [address] Care Team Providers Care Stockroom Worker Name Role Phone Unavailable Primary Care Provider [...] 10/22/2022 Social Influencers of Health Screening 10/22/2022 HPV Vaccines (1 - 3-dose SCD M series) 01/24/2024 Depression Screening 11/19/2024 COVID-19 Vaccine ( - 2023-2 5 season) 2025 Influenza Vaccine (#1) 2025 RSV Immunization Adult Patie nts (1 - 1-dose 75+ series) 01/24/2072 HIB Vaccines Aged Out No longer eligi [...]
--- OUTSIDE RECORDS SUMMARY | 2025-08-24 18:18 | XMS_ITS | Encounter Summary ---
Author Organization [facility] Address [address] [place] [address] Phone Care Team Providers Care Rough Rounder Machine Name Role Phone Filomena Means DO Primary Care Provider [phone] Encounter Details Date Type Department Care Team (Late st Contact Info) Description 12/22/2014 Documentation [facility] Family Medicine [address] [place] [address] Family Medicine, Physician [facility] [place], [place] [phone] Social History Tobacco Use Types Packs/Day Years [...] on filedocumented in this encounter Care Teams Rough Rounder Machine Relationship Specialty Start Date End Date Filomena Means DO [address] [place] [address] PCP - General 06/29/17 03/15/23 documented as of this encounter
--- OUTSIDE RECORDS SUMMARY | 2025-08-24 18:18 | XMS_ITS | Clinical Summary ---
Author Organization [facility] Address [address] [place] [address] Phone Care Team Providers Care Composite Bond Worker Name Role Phone Unavailable Primary Care [...] disorder 07/05/2012 Overview (10/23/2018): On OCP; saw DIRECTOR OF SECURITIES AND REAL ESTATE summer 2017 Assessment & Plan (10/24/2018 1:32 PM EST): We discussed LARCs as a good option for her; she will call DIRECTOR OF SECURITIES AND REAL ESTATE to set up appt. Immunizations Immunization Administration Dates Next Due DTP 07/28/1998, 7,1997,04/01 DTaP 5 02/20/2001 HPV, Quadrivalent 07/03/2011,02/27/2011,12/14/19 11 Hep A, ped/adol 09/24/2015,07/29/2014 Hep B, ped/adol 1997,1997,1997 Hib (PRP-T) 04/29/1998, 7,1997,04/01 IPV 02/20/2001 Influenza Split 12/14/2010 Influenza, injectable, quadr ivalent, preservative free 09/24/2018,07/27/2017,09/24/2015,07/29,08/27/2013 Influenza, injectable, trivalent 08/20/2009 MMR 02/20/2001,01/27/1998 Meningococcal Conj (Menactra) MCV4P 07/29/2014,0 07/29/2008 OPV 1997,1997,1997 Td (adult) ([facility] [place]), 5 Lf t etanus toxoid, PF, adsorbed [...] *Dental caries, No family history of *Sudden /[place] under 55 Sister Alive Sister: Alive a [...] 84 01/20/2019 10:58 AM EST Temperature 36.3 C (97.3 F) 01/20/2019 10:58 AM EST Respiratory Rate - - Oxygen Saturation 100% 12/23/2018 6:06 PM EST Inhaled Oxygen Concentration - - Weight 70.7 kg (155 lb 12.8 oz) 019 10:58 AM EST Height 167.6 cm (5' 6 ) 01/20/2019 10:5 8 AM EST Body Mass Index 25.15 01/20/2019 10:58 AM EST Plan of Treatment Health Maintenance Due Date Last Done Comments Influenza Vaccines (#1) 2025 09/24/20 18, 07/27/2017, 09/24/2015, Additional history exists COVID-19 Vaccine ( season) 2025 DTaP,Tdap,and Td Vaccines (8 - Td or [...] complete this topic Procedures * Due to [place] [employer] law, this organization might not be sharing sensitive test results. Procedure Name Priority Date/Time Associated Diagnosis Comments CHLAMYDIA AND GONORRHEA, AMPLIFIED Routine 10/23/2018 3:10 PM EST Screening examination for bacterial and spirochetal disease from Last 3 Months or Most Recently Relevant to Health Maintenance Results * Due to [place] [employer] law, this organization might not be sharing sensitive test results. * Chlamydia and Gonorrhea, Amplified (10/23/2018 3:10 PM EST) Chlamydia Trachomatis, DNA Probe NEGATIVE (NEG) [facility] Comment: No Chlamydia Trachomatis RNA detected in this patient's sample (REFERENCE RANGE/NORMAL VALUE: NOT DETECTED) Note: This test uses director of assisted living- mediated amplification method to detect rRNA from C. Trachomatis URINE GC AMP PROBE NEGATIVE (NEG) [facility] Comment: No Neisseria Gonorrhoeae RNA detected in this patient's sample (REFERENCE RANGE/NORMAL VALUE: NOT DETECTED) NOTE: This test uses director of assisted living-mediated amplification method to detect rRNA from N.Gonorrhoeae. [...] without risk of sexual abuse. Consult the [facility] if needed. Contact phone number . Therapeutic failure or success cannot be determined with the Aptima Combo2 assay since nucleic acid may persist following appropriate antimicrobial therapy. The Centers for Disease Control and Prevention (CDC) recommends confirmatory retesting using culture or a different nucleic acid amplification test when positive results occur, if indicated. Testing performed or reported by [facility], a Service of [facility], [facility] [place] [address] CLIA [id number] Delmar Castro MD, [employer] Architect Urine 10/23/2018 3:10 PM EST 10/24/2018 12:29 AM EST us Filomena Means DO LAB MICROBIOLOGY - GENERAL ORDER VAL Final Result [facility] from Last 3 Months or Most Recently Relevant to Health Maintenance
--- OUTSIDE RECORDS SUMMARY | 2025-08-24 18:18 | XMS_ITS | Encounter Summary ---
Author Organization [facility] Address [address] [place] [id number] Phone Care Team Providers Care Switch Box Installer Name Role Phone Filomena Means DO Primary Care Provider [phone] Encounter Details Date Type Department Care Team ([facility] Contact Info) Description 07/05/2017 Conversion Encounter [facility] [address] [place] [address] Social History Tobacco Use Types Packs/Day Years [...] on filedocumented in this encounter Care Teams Switch Box Installer Relationship Specialty Start Date End Date Filomena Means DO [address] [place] [address] PCP - General 06/29/17 03/15/23 documented as of this encounter
--- OUTSIDE RECORDS SUMMARY | 2025-08-24 18:18 | XMS_ITS | Encounter Summary ---
Author Organization [facility] Address [address] [place] [id number] Phone Care Team Providers Care Insurance Special Agent Name Role Phone Filomena Means DO Primary Care Provider [phone] Encounter Details Date Type Department Care Team (Late st Contact Info) Description 07/14/2015 Documentation [facility] [place] [facility] [address] [place] [address] Family Medicine, Physician [facility] [employer], [place] [id number] Social History Tobacco Use Types Packs/Day Years [...] on filedocumented in this encounter Care Teams Insurance Special Agent Relationship Specialty Start Date End Date Filomena Means DO [address] [place] [address] PCP - General 06/29/17 03/15/23 documented as of this encounter
--- OUTSIDE RECORDS SUMMARY | 2025-08-24 18:18 | XMS_ITS | Encounter Summary ---
Author Organization [facility] Address [address] [place] [id number] Phone Care Team Providers Care Screen Operator Name Role Phone Filomena Means DO Primary Care Provider [phone] Encounter Details Date Type Department Care Team (Late st Contact Info) Description 05/31/2015 Documentation [facility] [place] [address] [place] [address] Family Medicine, Physician [facility] [employer], [place] [id number] Social History Tobacco Use Types Packs/Day Years [...] on filedocumented in this encounter Care Teams Screen Operator Relationship Specialty Start Date End Date Filomena Means DO [address] [place] [address] PCP - General 06/29/17 03/15/23 documented as of this encounter
--- OUTSIDE RECORDS SUMMARY | 2025-08-24 18:18 | XMS_ITS | Encounter Summary ---
Author Organization [facility] Address [address] [place] [address] Phone Care Team Providers Care Chess Instructor Name Role Phone Filomena Means DO Primary Care Provider [phone] Encounter Details Date Type Department Care Team (Late st Contact Info) Description 09/28/2015 Documentation [facility] [place] Family Medicine [address] [place] [address] Family Medicine, Physician [address] [place] [id number] Social History Tobacco Use Types Packs/Day Years [...] on filedocumented in this encounter Care Teams Chess Instructor Relationship Specialty Start Date End Date Filomena Means DO [address] [place] [address] PCP - General 06/29/17 03/15/23 documented as of this encounter
== END 2025-08-24 16:53 | disposition home or self-care (01) ==
LOC: HO.HMCC 15:59
PROVIDERS: PCP Nurse Practitioner Family; Visit Provider Nurse Practitioner Family
DX: Z00.00 Encounter for general adult medical examination without abnormal findings (principal)

== ENCOUNTER → 2025-08-24 15:58 | Outpatient (BNVA) | payer OTHER, SELFPAY | PROVIDERS: PCP Nurse Practitioner Family; Visit Provider Nurse Practitioner Family | DX: Z00.00 Encounter for general adult medical examination without abnormal findings (principal) | CPT/HCPCS: 96127; 99395 ==